=== PATIENT | male | born 1940 | race African-American/Black ===

== ENCOUNTER 2017-04-22 07:43 | Day surgery (SDC) | payer OTHER ==
[2017-04-21 14:27] VITALS: BMI 36.6
[~2017-04-22 07:43] MED LIST: BUPIVACAINE HCL/PF 0.75% 10 ML VIAL RB ONE; CHONDROITIN SU A/HYALUR SOD 1 KIT IO ONE; LIDOCAINE HCL 1% PRESERVATIVE FREE - 30ML VIAL IO ONE; LIDOCAINE HCL/PF 2% SDV 5ML VIAL PNB ONE; TETRACAINE 0.5% OPHTH SOLN 2 ML BOTTLE TP ONE; TOBRAMYCIN/DEXAMETHASONE OPHTH. OINTMENT 1 TUBE TP ONE
[2017-04-22] MEDS ORDERED: PHENYLEPHRINE 2.5% OPHTH SOLN 15 ML BOTTLE ONE (08:45)
[2017-04-22] MEDS ORDERED: MOXIFLOXACIN HCL 0.5% OPHTHALMIC 3 ML BOTTLE ONE (08:45)
[2017-04-22] MEDS ORDERED: TROPICAMIDE 1% OPHTH SOLN 15 ML BOTTLE ONE (08:45)
[2017-04-22] MEDS ORDERED: CYCLOPENTOLATE HCL 1% OPHTH SOLN 2 ML BOTTLE ONE (08:45)
[2017-04-22] MEDS: CYCLOPENTOLATE HCL 1% OPHTH SOLN 2 ML BOTTLE OP SCH ×3 (08:55→09:15)
[2017-04-22] MEDS: MOXIFLOXACIN HCL 0.5% OPHTHALMIC 3 ML BOTTLE OP SCH ×3 (08:55→09:15)
[2017-04-22] MEDS: PHENYLEPHRINE 2.5% OPHTH SOLN 15 ML BOTTLE OP SCH ×3 (08:55→09:15)
[2017-04-22] MEDS: TROPICAMIDE 1% OPHTH SOLN 15 ML BOTTLE OP SCH ×3 (08:55→09:15)
[2017-04-22] MEDS ORDERED: LIDOCAINE 1% P/F 10 MG/ML VIAL ONE (09:47)
[2017-04-22] MEDS ORDERED: LIDOCAINE HCL/PF 2% SDV 5ML VIAL ONE (09:47)
[2017-04-22] MEDS ORDERED: BUPIVACAINE HCL/PF 0.75% 10 ML VIAL ONE (09:47)
[2017-04-22] MEDS ORDERED: EPINEPHrine/PF 1 MG/1 ML (1:1,000) AMPULE ONE (09:47)
[2017-04-22] MEDS ORDERED: TRYPAN BLUE 0.5 ML DISP.SYRIN ONE (09:47)
[2017-04-22] MEDS ORDERED: TETRACAINE 0.5% OPHTH SOLN 2 ML BOTTLE TP ONE (10:00)
[2017-04-22] MEDS ORDERED: BUPIVACAINE HCL/PF 0.75% 10 ML VIAL RB ONE (10:02)
[2017-04-22] MEDS ORDERED: LIDOCAINE HCL/PF 2% SDV 5ML VIAL PNB ONE (10:02)
[2017-04-22] MEDS ORDERED: LIDOCAINE HCL 1% PRESERVATIVE FREE - 30ML VIAL IO ONE (10:03)
[2017-04-22] MEDS ORDERED: CHONDROITIN SU A/HYALUR SOD 1 KIT IO ONE (10:13)
[2017-04-22] MEDS ORDERED: TRYPAN BLUE 0.5 ML DISP.SYRIN IO ONE (10:13)
[2017-04-22] MEDS ORDERED: TOBRAMYCIN/DEXAMETHASONE OPHTH. OINTMENT 1 TUBE TP ONE (10:28)
[2017-04-22 14:49] VITALS: BP 142/77; PULSE 58; TEMP 97.2
--- NOTE | 2017-04-23 08:36 | OP ---
DATE OF OPERATION: 04/22/2017 SURGEON: Guillermo Rivas MD PREOPERATIVE DIAGNOSIS: Cataract, left eye. OPERATION: Phacoemulsification and intraocular lens implantation, left eye. POSTOPERATIVE DIAGNOSIS: Cataract, left eye. ANESTHESIA: Local with intravenous sedation. COMPLICATIONS: None. BLOOD LOSS: None. SPECIMEN: None. BRIEF HISTORY: The patient is a 77-year-old man with a past medical history of diabetes who presented with decreased vision in the left eye down to 20/50- due to a 1+ nuclear sclerotic lens with dense anterior spoking. Patient also has an ocular history significant for diabetic retinopathy, for which he has had intravitreal injections. After the risks, benefits, and alternatives to cataract surgery were discussed with the patient including the increased risk of posterior capsular tear due to the prior intravitreal injections, the patient consented to surgery. DESCRIPTION OF PROCEDURE: The patient was brought to the operating room and administered retrobulbar block after he was given intravenous sedation. He was then prepped and draped in the usual sterile fashion, and an eyelid speculum was inserted in the left eye, a paracentesis was made, and the anterior chamber was inflated with nonpreserved lidocaine. This was followed by injection of air, trypan blue dye , and Viscoat due to the poor visualization of the anterior capsule due to the anterior cortical spokes. A groove was made in the superotemporal clear cornea which was tunneled forward with a crescent blade. The anterior chamber was entered with a 2.75 keratome. The cystotome was used to make an incision at the center of the capsule, and a continuous curvilinear capsulorrhexis was created. The lens was hydrodissected until it was found to rotate freely within the capsular bag. Phacoemulsification was then used to remove the lens in its entirety. Irrigation and aspiration were used to remove residual cortical material. The anterior chamber and capsular bag were reinflated with Provisc, and a 20.0 diopter SN60WF AcrySof intraocular lens was injected into the capsular bag using the [place] injector. The lens was dialed into place using the [place] Labsey hook. Irrigation and aspiration were used to remove residual viscoelastic. The wound was stromally hydrated until it was found to be watertight and the eye was in an appropriate pressure. The eyelid speculum was removed from the eye, and TobraDex drops and a patch and shield were placed over the left eye. The patient was transferred to the recovery room in stable condition and will follow up tomorrow. Aydin [id number] MTDD
== END 2017-04-22 12:00 | disposition home or self-care (01) ==
LOC: JASU-SURG 07:43
PROVIDERS: ATTEND Ophthalmology
PROC: 08RK3JZ Replacement of Left Lens with Synthetic Substitute, Percutaneous Approach (ICD-10-PCS; principal; 2017-04-22 10:00)
DX: H25.12 Age-related nuclear cataract, left eye (principal); E13.319 Other specified diabetes mellitus with unspecified diabetic retinopathy without macular edema; H18.892 Other specified disorders of cornea, left eye

== ENCOUNTER 2017-09-09 08:24 | Day surgery (SDC) | payer OTHER ==
[2017-09-05 14:42] VITALS: BMI 31.0
[~2017-09-09 08:24] MED LIST changes: -BUPIVACAINE HCL/PF 0.75% 10 ML VIAL RB ONE; -CHONDROITIN SU A/HYALUR SOD 1 KIT IO ONE; -LIDOCAINE HCL 1% PRESERVATIVE FREE - 30ML VIAL IO ONE; -LIDOCAINE HCL/PF 2% SDV 5ML VIAL PNB ONE; -TETRACAINE 0.5% OPHTH SOLN 2 ML BOTTLE TP ONE
[2017-09-09] MEDS: CYCLOPENTOLATE HCL 1% OPHTH SOLN 2 ML BOTTLE OP SCH ×3 (09:00→09:35)
[2017-09-09] MEDS: PHENYLEPHRINE 2.5% OPHTH SOLN 15 ML BOTTLE OP SCH ×3 (09:00→09:36)
[2017-09-09] MEDS: MOXIFLOXACIN HCL 0.5% OPHTHALMIC 3 ML BOTTLE OP SCH ×3 (09:00→09:36)
[2017-09-09] MEDS: TROPICAMIDE 1% OPHTH SOLN 15 ML BOTTLE OP SCH ×3 (09:00→09:36)
[2017-09-09] MEDS ORDERED: TROPICAMIDE 1% OPHTH SOLN 15 ML BOTTLE ONE (09:06)
[2017-09-09] MEDS ORDERED: MOXIFLOXACIN HCL 0.5% OPHTHALMIC 3 ML BOTTLE ONE (09:06)
[2017-09-09] MEDS ORDERED: CYCLOPENTOLATE HCL 1% OPHTH SOLN 2 ML BOTTLE ONE (09:07)
[2017-09-09] MEDS ORDERED: PHENYLEPHRINE 2.5% OPHTH SOLN 15 ML BOTTLE ONE (09:07)
[2017-09-09 09:28] VITALS: TEMP 97.8
[2017-09-09] MEDS ORDERED: MIDAZOLAM HCL 2 MG/2 ML SINGLE DOSE VIAL ONE (11:30)
[2017-09-09] MEDS ORDERED: PROPOFOL 20 ML ONE (11:30)
[2017-09-09] MEDS ORDERED: LIDOCAINE HCL/PF 2% SDV 5ML VIAL ONE (11:30)
[2017-09-09] MEDS ORDERED: TETRACAINE 0.5% OPHTH SOLN 2 ML BOTTLE OD ONE (11:48)
[2017-09-09] MEDS ORDERED: BUPIVACAINE HCL/PF 0.75% 10 ML VIAL RB ONE (11:52)
[2017-09-09] MEDS ORDERED: LIDOCAINE HCL/PF 2% SDV 5ML VIAL INF ONE (11:52)
[2017-09-09] MEDS ORDERED: POVIDONE-IODINE 5% OPHTHALMIC PREP 30 ML SOLUTION OD ONE (11:53)
[2017-09-09] MEDS ORDERED: BSS (NA/CA/MG/K) BALANCED SALT SOLUTION OPHTH SOLN 15 ML BOTTLE OD ONE (12:03)
[2017-09-09] MEDS ORDERED: LIDOCAINE HCL 1% PRESERVATIVE FREE - 30ML VIAL IO ONE (12:03)
[2017-09-09] MEDS ORDERED: CHONDROITIN SU A/HYALUR SOD 1 KIT IO ONE (12:03)
[2017-09-09] MEDS ORDERED: EPINEPHrine/PF 1 MG/1 ML (1:1,000) AMPULE SQ ONE (12:06)
[2017-09-09] MEDS ORDERED: TOBRAMYCIN/DEXAMETHASONE OPHTH. OINTMENT 1 TUBE TP ONE (12:21)
[2017-09-09 13:54] VITALS: BP 117/66; PULSE 67
--- NOTE | 2017-09-09 14:07 | OP ---
DATE OF OPERATION: 09/09/2017 SURGEON: Guillermo Rivas MD PREOPERATIVE DIAGNOSIS: Cataract, right eye. OPERATION: Phacoemulsification and intraocular lens implantation, right eye. POSTOPERATIVE DIAGNOSIS: Cataract, right eye. ANESTHESIA: Local with intravenous sedation. COMPLICATIONS: None. BLOOD LOSS: None. SPECIMEN: None. BRIEF HISTORY: The patient is a 77-year-old man with a past medical history of diabetes, who presented with decreased vision in the right eye down to 20/50- due to a 1+ nuclear sclerotic lens with anterior cortical changes and peripheral cortical changes. After the risks, benefits, and alternatives to cataract surgery were discussed with the patient, he consented to surgery for the right eye. DESCRIPTION OF PROCEDURE: The patient was brought to the operating room and administered retrobulbar block after receiving intravenous sedation. He was then prepped and draped in the usual sterile fashion, and an eyelid speculum was inserted in the right eye. A paracentesis was made, and the anterior chamber was inflated with nonpreserved lidocaine. This was followed by injection of Viscoat. A groove was made in the temporal clear cornea which was tunneled forward with a crescent blade. The anterior chamber was entered with a 2.75 keratome. The cystotome was used to make an incision in the center of the capsule, and a continuous curvilinear capsulorrhexis was created. The lens was hydrodissected until it was found to rotate freely within the capsular bag. Phacoemulsification was then used to remove the lens in its entirety. Irrigation and aspiration were used to remove residual cortical material. The anterior chamber and capsular bag were reinflated with Provisc, and a 20.0-diopter SN60WF AcrySof intraocular lens was injected into the capsular bag using the [place] injector. The lens was dialed into place using a [place] hook. Irrigation and aspiration were used to remove residual Viscoelastic. The wound was stromally hydrated until it was found to be watertight and the eye was at an appropriate pressure. The eyelid speculum was removed from the eye, and TobraDex ointment and a patch and shield were placed over the right eye. The patient was transferred to the recovery room in stable condition and will follow up tomorrow. Aydin STRICKLAND/[id number]
== END 2017-09-09 13:45 | disposition home or self-care (01) ==
LOC: JASU-SURG 08:24
PROVIDERS: ATTEND Ophthalmology
PROC: 08RJ3JZ Replacement of Right Lens with Synthetic Substitute, Percutaneous Approach (ICD-10-PCS; principal; 2017-09-09 10:30)
DX: H25.11 Age-related nuclear cataract, right eye (principal)

== ENCOUNTER 2022-03-29 13:42 | Inpatient (IN) | payer OTHER ==
[2022-03-29 15:19] LABS: BASO % 0.9 % (0-2.0); EOS % 1.1 % (0-4.5); HEMATOCRIT 43.8 % (35.4-49); HEMOGLOBIN 15.3 GM/dL (11.7-16.9); LYMPH % 27.2 % (8-40); MCH 34.3 pg (25.7-33.7); MCHC 34.9 g/dl (32.0-35.9); MEAN CELL VOLUME 98.1 fl (80-96); MEAN PLT VOLUME 10.8 fl (7.5-11.1); MONO % 12.5 % (3.8-10.2); NEUT % 58.3 % (42.8-82.8); PLATELET COUNT 113 10^3/uL (134-434); RBC 4.47 M/mm3 (4.00-5.60); RDW 11.9 % (11.9-15.9); WHITE BLOOD COUNT 4.2 K/mm3 (4.0-10.0)
[2022-03-29 15:37] LABS: CALCIUM 9.7 mg/dL (8.5-10.1)
[2022-03-29 15:38] LABS: ALBUMIN 4.3 g/dl (3.4-5.0); BLOOD UREA NITROGEN 18.3 mg/dL (7-18)
[2022-03-29 15:41] LABS: CREATININE 1.1 mg/dL (0.55-1.3)
[2022-03-29 15:42] LABS: BILIRUBIN,TOTAL 0.8 mg/dL (0.2-1); TOT PROT 8.1 g/dl (6.4-8.2)
[2022-03-29 15:51] LABS: ACTIVATED PTT 32.9 SECONDS (25.2-36.5); INR 1.24 (0.83-1.09); PROTHROMBIN TIME (PATIENT) 14.3 SEC (9.7-13.0)
[2022-03-29 21:00] LABS: URINE APPEARANCE CLEAR; URINE BILIRUBIN NEGATIVE (NEGATIVE); URINE COLOR YELLOW; URINE GLUCOSE (UA) 1+ (NEGATIVE); URINE KETONE NEGATIVE (NEGATIVE); URINE LEUK ESTERASE NEGATIVE (NEGATIVE); URINE NITRITE NEGATIVE (NEGATIVE); URINE PROTEIN NEGATIVE (NEGATIVE); URINE UROBILINOGEN 0.2 mg/dL (0.2-1.0)
[2022-03-30] MEDS: levETIRAcetam 500 MG TABLET (FP) PO SCH ×3 (00:55→21:10)
[2022-03-30] MEDS: ROSUVASTATIN CA 20 MG TABLET PO SCH ×2 (00:55→21:10)
[2022-03-30] MEDS: INSULIN SLIDING SCALE (NOVOLOG) 1 VIAL SQ SCH ×5 (01:05→21:20)
[2022-03-30 07:09] LABS: HEMATOCRIT 40.6 % (35.4-49); HEMOGLOBIN 13.9 GM/dL (11.7-16.9); MCH 33.8 pg (25.7-33.7); MCHC 34.3 g/dl (32.0-35.9); MEAN CELL VOLUME 98.6 fl (80-96); MEAN PLT VOLUME 11.2 fl (7.5-11.1); PLATELET COUNT 103 10^3/uL (134-434); RBC 4.12 M/mm3 (4.00-5.60); RDW 11.4 % (11.9-15.9); WHITE BLOOD COUNT 5.3 K/mm3 (4.0-10.0)
[2022-03-30] MEDS: ASPIRIN 81 MG CHEWABLE TABLETS PO SCH (09:29)
[2022-03-30] MEDS: ENOXAPARIN NA (PORCINE) 40 MG/0.4 ML DISP.SYRIN SQ SCH (09:29)
[2022-03-30] MEDS: LOSARTAN 50MG/HCTZ 12.5MG 1 TAB PO SCH (09:29)
[2022-03-30 11:19] LABS: N-TERMINAL BNP 23.1 pg/ml (5-450)
[2022-03-31] MEDS: INSULIN SLIDING SCALE (NOVOLOG) 1 VIAL SQ SCH ×4 (06:18→21:33)
[2022-03-31 07:00] LABS: BASO % 0.7 % (0-2.0); EOS % 1.7 % (0-4.5); HEMATOCRIT 40.2 % (35.4-49); HEMOGLOBIN 13.9 GM/dL (11.7-16.9); LYMPH % 35.2 % (8-40); MCH 34.1 pg (25.7-33.7); MCHC 34.5 g/dl (32.0-35.9); MEAN CELL VOLUME 98.7 fl (80-96); MEAN PLT VOLUME 10.9 fl (7.5-11.1); MONO % 14.7 % (3.8-10.2); NEUT % 47.7 % (42.8-82.8); PLATELET COUNT 91 10^3/uL (134-434); RBC 4.07 M/mm3 (4.00-5.60); RDW 11.7 % (11.9-15.9); WHITE BLOOD COUNT 4.9 K/mm3 (4.0-10.0)
[2022-03-31 07:25] LABS: CALCIUM 8.9 mg/dL (8.5-10.1)
[2022-03-31] MEDS: LOSARTAN 50MG/HCTZ 12.5MG 1 TAB PO SCH (09:35)
[2022-03-31] MEDS: ENOXAPARIN NA (PORCINE) 40 MG/0.4 ML DISP.SYRIN SQ SCH (09:35)
[2022-03-31] MEDS: levETIRAcetam 500 MG TABLET (FP) PO SCH ×2 (09:35→21:26)
[2022-03-31] MEDS: ASPIRIN 81 MG CHEWABLE TABLETS PO SCH (09:35)
[2022-03-31] MEDS: guaiFENesin/CODEINE 5 ML UNIT-DOSE CUPS PO PRN (13:29)
[2022-03-31] MEDS ORDERED: SODIUM CHLORIDE 1,000 ML IV SCH (15:45)
[2022-03-31] MEDS ORDERED: DEXAMETHASONE SOD PHOSPHATE 10 MG/1 ML VIAL IVPUSH ONE (20:43)
[2022-03-31] MEDS: ROSUVASTATIN CA 20 MG TABLET PO SCH (21:26)
[2022-04-01] MEDS: INSULIN SLIDING SCALE (NOVOLOG) 1 VIAL SQ SCH ×4 (06:07→21:19)
[2022-04-01 07:42] LABS: BASO % 0.5 % (0-2.0); HEMATOCRIT 42.1 % (35.4-49); HEMOGLOBIN 14.5 GM/dL (11.7-16.9); LYMPH % 15.5 % (8-40); MCH 33.7 pg (25.7-33.7); MCHC 34.6 g/dl (32.0-35.9); MEAN CELL VOLUME 97.6 fl (80-96); MEAN PLT VOLUME 11.2 fl (7.5-11.1); MONO % 1.6 % (3.8-10.2); NEUT % 82.4 % (42.8-82.8); PLATELET COUNT 109 10^3/uL (134-434); RBC 4.31 M/mm3 (4.00-5.60); RDW 11.7 % (11.9-15.9); WHITE BLOOD COUNT 4.6 K/mm3 (4.0-10.0)
[2022-04-01 07:54] LABS: CALCIUM 8.7 mg/dL (8.5-10.1)
[2022-04-01 07:55] LABS: BLOOD UREA NITROGEN 19.9 mg/dL (7-18)
[2022-04-01 07:58] LABS: CREATININE 0.9 mg/dL (0.55-1.3)
[2022-04-01] MEDS: ENOXAPARIN NA (PORCINE) 40 MG/0.4 ML DISP.SYRIN SQ SCH (10:05)
[2022-04-01] MEDS: levETIRAcetam 500 MG TABLET (FP) PO SCH ×2 (10:05→21:12)
[2022-04-01] MEDS: LOSARTAN 50MG/HCTZ 12.5MG 1 TAB PO SCH (10:05)
[2022-04-01] MEDS: guaiFENesin/CODEINE 5 ML UNIT-DOSE CUPS PO PRN (21:12)
[2022-04-01] MEDS: ROSUVASTATIN CA 20 MG TABLET PO SCH (21:12)
[2022-04-02] MEDS: INSULIN SLIDING SCALE (NOVOLOG) 1 VIAL SQ SCH ×4 (06:44→21:51)
[2022-04-02] MEDS ORDERED: GENTAMICIN SO4 80 MG/2 ML VIAL ONE (07:21)
[2022-04-02] MEDS ORDERED: LIDOCAINE 1%/EPI 1:100000 (20 ML MULTI DOSE VIAL) ONE (07:21)
[2022-04-02] MEDS ORDERED: BUPIVACAINE HCL/PF 0.5% (5MG/ML) 10 ML VIAL ONE (07:21)
[2022-04-02] MEDS ORDERED: LIDOCAINE 1%/EPI 1:100000 (50 ML MULTI DOSE VIAL) NR ONE ×2 (07:57→12:30)
[2022-04-02] MEDS ORDERED: ceFAZolin SODIUM 1 GM VIAL IVPB ONE ×3 (07:58→12:25)
[2022-04-02] MEDS ORDERED: THROMBIN (BOVINE) 5,000 UNIT VIAL TP ONE ×2 (07:58→13:09)
[2022-04-02] MEDS ORDERED: VANCOMYCIN 1 GM in NS (PRE-DOCKED) 1,000 MG/250 ML IVPB ONE ×2 (07:58→12:52)
[2022-04-02] MEDS ORDERED: HYDROGEN PEROXIDE 473 ML PO ONE ×2 (07:59→13:09)
[2022-04-02] MEDS ORDERED: GENTAMICIN SO4 80 MG/2 ML VIAL IVPB ONE ×2 (07:59→13:06)
[2022-04-02] MEDS ORDERED: BUPIVACAINE HCL/PF 0.5% (5MG/ML) 10 ML VIAL IJ ONE (08:00)
[2022-04-02] MEDS ORDERED: THROMBIN (BOVINE) 20,000 UNIT VIAL TP ONE (08:10)
[2022-04-02] MEDS: levETIRAcetam 500 MG TABLET (FP) PO SCH ×2 (09:38→21:51)
[2022-04-02] MEDS: LOSARTAN 50MG/HCTZ 12.5MG 1 TAB PO SCH (09:39)
[2022-04-02] MEDS: ENOXAPARIN NA (PORCINE) 40 MG/0.4 ML DISP.SYRIN SQ SCH (09:39)
[2022-04-02] MEDS ORDERED: ETOMIDATE 20 MG/10 ML AMPUL IVPUSH ONE (11:10)
[2022-04-02] MEDS ORDERED: LIDOCAINE HCL/PF 2% SDV 5ML VIAL ONE (11:10)
[2022-04-02] MEDS ORDERED: ROCURONIUM BROMIDE 50 MG/5 ML SYRINGE ONE ×2 (11:11→13:19)
[2022-04-02] MEDS ORDERED: ALBUTEROL SO4 HFA INHALER IH ONE (11:11)
[2022-04-02] MEDS ORDERED: PROPOFOL 20 ML ONE (11:11)
[2022-04-02] MEDS ORDERED: ONDANSETRON 4 MG/2 ML VIAL ONE (12:09)
[2022-04-02] MEDS ORDERED: DEXAMETHASONE SOD PHOSPHATE 4 MG/1 ML VIAL ONE (12:09)
[2022-04-02] MEDS ORDERED: ceFAZolin SODIUM 1 GM VIAL ONE ×2 (12:22→21:44)
[2022-04-02] MEDS ORDERED: VANCOMYCIN 1,000 MG VIAL (RESTRICTED TO ID ONLY) ONE (12:51)
[2022-04-02] MEDS ORDERED: TRANEXAMIC ACID 1000 MG/10 ML VIAL ONE (12:51)
[2022-04-02] MEDS ORDERED: GLYCOPYRROLATE 0.2 MG/1 ML VIAL ONE (13:27)
[2022-04-02] MEDS ORDERED: NEOSTIGMINE METHYLSULFATE 0.5 MG/1 ML - 10 ML MDV ONE (13:27)
[2022-04-02] MEDS ORDERED: ONDANSETRON 4 MG/2 ML VIAL IVPUSH PRN ×3 (14:25→15:01)
[2022-04-02] MEDS ORDERED: ACETAMINOPHEN 1000 MG/100 ML BAG IVPB PRN ×2 (14:26→15:01)
[2022-04-02] MEDS ORDERED: CODEINE SO4 30 MG TABLET PO PRN (14:44)
[2022-04-02] MEDS ORDERED: ACETAMINOPHEN INJECTION 100 ML IVPB ONE (14:49)
[2022-04-02] MEDS ORDERED: guaiFENesin/CODEINE 5 ML UNIT-DOSE CUPS PO PRN (15:01)
[2022-04-02] MEDS: SODIUM CHLORIDE 1,000 ML IV SCH (16:00)
[2022-04-02] MEDS ORDERED: DEXTROSE 5%-WATER - 50 ML IVPB ONE (21:44)
[2022-04-02] MEDS: CEFAZOLIN 1 GM in DEXTROSE 5%-WATER - 50 ML IVPB SCH (21:51)
[2022-04-02] MEDS: DOCUSATE SODIUM 100 MG CAPSULE (FP) PO SCH (21:51)
[2022-04-02] MEDS: ROSUVASTATIN CA 20 MG TABLET PO SCH (21:51)
[2022-04-03] MEDS ORDERED: ceFAZolin SODIUM 1 GM VIAL ONE (01:49)
[2022-04-03] MEDS ORDERED: DEXTROSE 5%-WATER - 50 ML IVPB ONE (01:49)
[2022-04-03] MEDS: CEFAZOLIN 1 GM in DEXTROSE 5%-WATER - 50 ML IVPB SCH (04:26)
[2022-04-03] MEDS: INSULIN SLIDING SCALE (NOVOLOG) 1 VIAL SQ SCH ×4 (06:41→21:32)
[2022-04-03] MEDS: DOCUSATE SODIUM 100 MG CAPSULE (FP) PO SCH ×3 (06:41→21:32)
[2022-04-03] MEDS ORDERED: ASPIRIN 81 MG CHEWABLE TABLETS PO SCH (10:00)
[2022-04-03] MEDS: ENOXAPARIN NA (PORCINE) 40 MG/0.4 ML DISP.SYRIN SQ SCH (11:09)
[2022-04-03] MEDS: LOSARTAN 50MG/HCTZ 12.5MG 1 TAB PO SCH (11:09)
[2022-04-03] MEDS: levETIRAcetam 500 MG TABLET (FP) PO SCH ×2 (11:09→21:32)
[2022-04-03 14:45] LABS: HEMATOCRIT 38.6 % (35.4-49); HEMOGLOBIN 13.1 GM/dL (11.7-16.9); MCH 33.9 pg (25.7-33.7); MCHC 33.9 g/dl (32.0-35.9); MEAN CELL VOLUME 100.1 fl (80-96); MEAN PLT VOLUME 10.1 fl (7.5-11.1); PLATELET COUNT 92 10^3/uL (134-434); RBC 3.86 M/mm3 (4.00-5.60); RDW 11.6 % (11.9-15.9); WHITE BLOOD COUNT 6.8 K/mm3 (4.0-10.0)
[2022-04-03 15:20] LABS: CALCIUM 8.7 mg/dL (8.5-10.1)
[2022-04-03 15:21] LABS: BLOOD UREA NITROGEN 21.2 mg/dL (7-18)
[2022-04-03 15:24] LABS: CREATININE 1.2 mg/dL (0.55-1.3)
[2022-04-03] MEDS: ROSUVASTATIN CA 20 MG TABLET PO SCH (21:32)
[2022-04-04] MEDS: DOCUSATE SODIUM 100 MG CAPSULE (FP) PO SCH ×3 (06:35→21:23)
[2022-04-04] MEDS: INSULIN SLIDING SCALE (NOVOLOG) 1 VIAL SQ SCH ×4 (06:36→21:23)
[2022-04-04] MEDS: SODIUM CHLORIDE 1,000 ML IV SCH ×2 (06:40→17:18)
[2022-04-04] MEDS: LOSARTAN 50MG/HCTZ 12.5MG 1 TAB PO SCH (09:53)
[2022-04-04] MEDS: ENOXAPARIN NA (PORCINE) 40 MG/0.4 ML DISP.SYRIN SQ SCH (09:53)
[2022-04-04] MEDS: levETIRAcetam 500 MG TABLET (FP) PO SCH ×2 (09:53→21:23)
[2022-04-04] MEDS ORDERED: LORazepam 2 MG/ML SDV VIAL IVPUSH PRN (11:53)
[2022-04-04] MEDS: ROSUVASTATIN CA 20 MG TABLET PO SCH (21:23)
[2022-04-04 23:59] VITALS: BMI 35.0
[2022-04-05] MEDS: INSULIN SLIDING SCALE (NOVOLOG) 1 VIAL SQ SCH ×4 (06:07→22:10)
[2022-04-05] MEDS: DOCUSATE SODIUM 100 MG CAPSULE (FP) PO SCH ×3 (06:07→22:02)
[2022-04-05] MEDS: ENOXAPARIN NA (PORCINE) 40 MG/0.4 ML DISP.SYRIN SQ SCH (10:16)
[2022-04-05] MEDS: levETIRAcetam 500 MG TABLET (FP) PO SCH ×2 (10:17→22:02)
[2022-04-05] MEDS: LOSARTAN 50MG/HCTZ 12.5MG 1 TAB PO SCH (10:17)
[2022-04-05 13:37] LABS: BASO % 0.6 % (0-2.0); HEMATOCRIT 38.7 % (35.4-49); HEMOGLOBIN 13.4 GM/dL (11.7-16.9); LYMPH % 24.5 % (8-40); MCH 33.9 pg (25.7-33.7); MCHC 34.6 g/dl (32.0-35.9); MEAN CELL VOLUME 97.9 fl (80-96); MEAN PLT VOLUME 11.1 fl (7.5-11.1); NEUT % 61.9 % (42.8-82.8); PLATELET COUNT 86 10^3/uL (134-434); RBC 3.95 M/mm3 (4.00-5.60); RDW 11.6 % (11.9-15.9); WHITE BLOOD COUNT 6.3 K/mm3 (4.0-10.0)
[2022-04-05 14:06] LABS: CALCIUM 8.5 mg/dL (8.5-10.1)
[2022-04-05 14:07] LABS: BLOOD UREA NITROGEN 14.7 mg/dL (7-18)
[2022-04-05 14:10] LABS: CREATININE 0.8 mg/dL (0.55-1.3)
[2022-04-05] MEDS: SODIUM CHLORIDE 1,000 ML IV SCH (15:42)
[2022-04-05] MEDS ORDERED: ACETAMINOPHEN 500 MG TABLET (FP) PO PRN (16:06)
[2022-04-05] MEDS: ROSUVASTATIN CA 20 MG TABLET PO SCH (22:02)
[2022-04-06] MEDS: DOCUSATE SODIUM 100 MG CAPSULE (FP) PO SCH ×3 (05:49→21:45)
[2022-04-06] MEDS: INSULIN SLIDING SCALE (NOVOLOG) 1 VIAL SQ SCH ×4 (06:06→21:56)
[2022-04-06] MEDS: LOSARTAN 50MG/HCTZ 12.5MG 1 TAB PO SCH (09:25)
[2022-04-06] MEDS: levETIRAcetam 500 MG TABLET (FP) PO SCH ×2 (09:25→21:45)
[2022-04-06] MEDS: ENOXAPARIN NA (PORCINE) 40 MG/0.4 ML DISP.SYRIN SQ SCH (09:34)
[2022-04-06] MEDS: SODIUM CHLORIDE 1,000 ML IV SCH (21:43)
[2022-04-06] MEDS: ROSUVASTATIN CA 20 MG TABLET PO SCH (21:45)
[2022-04-07] MEDS: DOCUSATE SODIUM 100 MG CAPSULE (FP) PO SCH ×3 (06:33→21:45)
[2022-04-07] MEDS: INSULIN SLIDING SCALE (NOVOLOG) 1 VIAL SQ SCH ×3 (06:33→16:55)
[2022-04-07] MEDS: levETIRAcetam 500 MG TABLET (FP) PO SCH ×2 (09:46→21:45)
[2022-04-07] MEDS: LOSARTAN 50MG/HCTZ 12.5MG 1 TAB PO SCH (09:46)
[2022-04-07] MEDS: ENOXAPARIN NA (PORCINE) 40 MG/0.4 ML DISP.SYRIN SQ SCH (09:49)
[2022-04-07] MEDS ORDERED: SODIUM CHLORIDE 1,000 ML IV SCH (10:34)
[2022-04-07 11:47] LABS: BASO % 0.6 % (0-2.0); EOS % 2.4 % (0-4.5); HEMATOCRIT 36.6 % (35.4-49); HEMOGLOBIN 12.9 GM/dL (11.7-16.9); LYMPH % 26.2 % (8-40); MCH 34.6 pg (25.7-33.7); MCHC 35.2 g/dl (32.0-35.9); MEAN CELL VOLUME 98.3 fl (80-96); MEAN PLT VOLUME 11.4 fl (7.5-11.1); MONO % 14.7 % (3.8-10.2); NEUT % 56.1 % (42.8-82.8); PLATELET COUNT 81 10^3/uL (134-434); RBC 3.72 M/mm3 (4.00-5.60); RDW 11.8 % (11.9-15.9); WHITE BLOOD COUNT 4.6 K/mm3 (4.0-10.0)
[2022-04-07 12:01] LABS: BLOOD UREA NITROGEN 12.4 mg/dL (7-18); CALCIUM 8.2 mg/dL (8.5-10.1)
[2022-04-07 12:04] LABS: CREATININE 0.6 mg/dL (0.55-1.3)
[2022-04-07] MEDS ORDERED: POLYETHYLENE GLYCOL (HEALTHYLAX) 3350 17 GM PACKET PO ONE (18:45)
[2022-04-07] MEDS: ROSUVASTATIN CA 20 MG TABLET PO SCH (21:45)
[2022-04-08] MEDS: INSULIN SLIDING SCALE (NOVOLOG) 1 VIAL SQ SCH ×5 (00:28→21:47)
[2022-04-08] MEDS ORDERED: LORazepam 2 MG/ML SDV VIAL IVPUSH ONE (00:50)
[2022-04-08] MEDS: DOCUSATE SODIUM 100 MG CAPSULE (FP) PO SCH ×3 (06:05→21:47)
[2022-04-08] MEDS: levETIRAcetam 500 MG TABLET (FP) PO SCH ×2 (10:03→21:47)
[2022-04-08] MEDS: LOSARTAN 50MG/HCTZ 12.5MG 1 TAB PO SCH (10:03)
[2022-04-08] MEDS: ENOXAPARIN NA (PORCINE) 40 MG/0.4 ML DISP.SYRIN SQ SCH (10:53)
[2022-04-08 12:12] LABS: BASO % 0.8 % (0-2.0); EOS % 2.4 % (0-4.5); HEMATOCRIT 39.6 % (35.4-49); HEMOGLOBIN 13.6 GM/dL (11.7-16.9); LYMPH % 25.1 % (8-40); MCHC 34.2 g/dl (32.0-35.9); MEAN CELL VOLUME 99.3 fl (80-96); MEAN PLT VOLUME 11.9 fl (7.5-11.1); MONO % 13.2 % (3.8-10.2); NEUT % 58.5 % (42.8-82.8); PLATELET COUNT 92 10^3/uL (134-434); RBC 3.99 M/mm3 (4.00-5.60); WHITE BLOOD COUNT 4.7 K/mm3 (4.0-10.0)
[2022-04-08 12:30] LABS: ALBUMIN 3.7 g/dl (3.4-5.0); CALCIUM 9.1 mg/dL (8.5-10.1)
[2022-04-08 12:31] LABS: BLOOD UREA NITROGEN 10.4 mg/dL (7-18)
[2022-04-08 12:33] LABS: CREATININE 0.9 mg/dL (0.55-1.3)
[2022-04-08 12:35] LABS: BILIRUBIN,TOTAL 1.3 mg/dL (0.2-1); TOT PROT 6.5 g/dl (6.4-8.2)
[2022-04-08] MEDS: ROSUVASTATIN CA 20 MG TABLET PO SCH (21:47)
[2022-04-09] MEDS: DOCUSATE SODIUM 100 MG CAPSULE (FP) PO SCH ×3 (05:46→21:05)
[2022-04-09] MEDS: INSULIN SLIDING SCALE (NOVOLOG) 1 VIAL SQ SCH ×4 (06:03→21:04)
[2022-04-09] MEDS: ENOXAPARIN NA (PORCINE) 40 MG/0.4 ML DISP.SYRIN SQ SCH (09:11)
[2022-04-09] MEDS: levETIRAcetam 500 MG TABLET (FP) PO SCH ×2 (09:11→21:05)
[2022-04-09] MEDS: TAMSULOSIN HCL 0.4 MG CAP PO SCH (09:11)
[2022-04-09] MEDS: LOSARTAN 50MG/HCTZ 12.5MG 1 TAB PO SCH (09:11)
[2022-04-09] MEDS: QUEtiapine FUMARATE 25 MG TABLET PO SCH ×2 (10:05→21:05)
[2022-04-09 13:39] LABS: BASO % 1.3 % (0-2.0); EOS % 1.5 % (0-4.5); HEMATOCRIT 39.6 % (35.4-49); HEMOGLOBIN 13.8 GM/dL (11.7-16.9); LYMPH % 23.5 % (8-40); MCH 34.5 pg (25.7-33.7); MCHC 34.7 g/dl (32.0-35.9); MEAN CELL VOLUME 99.3 fl (80-96); MEAN PLT VOLUME 11.1 fl (7.5-11.1); MONO % 12.3 % (3.8-10.2); NEUT % 61.4 % (42.8-82.8); PLATELET COUNT 90 10^3/uL (134-434); RBC 3.99 M/mm3 (4.00-5.60); RDW 11.7 % (11.9-15.9); WHITE BLOOD COUNT 5.1 K/mm3 (4.0-10.0)
[2022-04-09 14:16] LABS: CALCIUM 9.2 mg/dL (8.5-10.1)
[2022-04-09 14:17] LABS: CREATININE 0.9 mg/dL (0.55-1.3)
[2022-04-09] MEDS: ROSUVASTATIN CA 20 MG TABLET PO SCH (21:06)
[2022-04-09] MEDS: LORazepam 2 MG/ML SDV VIAL IVPUSH PRN (21:11)
[2022-04-10 00:46] LABS: URINE APPEARANCE CLEAR; URINE BILIRUBIN NEGATIVE (NEGATIVE); URINE COLOR YELLOW; URINE GLUCOSE (UA) NEGATIVE (NEGATIVE); URINE KETONE NEGATIVE (NEGATIVE); URINE LEUK ESTERASE NEGATIVE (NEGATIVE); URINE NITRITE NEGATIVE (NEGATIVE); URINE PROTEIN NEGATIVE (NEGATIVE)
[2022-04-10] MEDS: DOCUSATE SODIUM 100 MG CAPSULE (FP) PO SCH ×3 (06:05→21:36)
[2022-04-10] MEDS: INSULIN SLIDING SCALE (NOVOLOG) 1 VIAL SQ SCH ×4 (06:05→21:45)
[2022-04-10] MEDS: QUEtiapine FUMARATE 25 MG TABLET PO SCH ×2 (09:57→21:36)
[2022-04-10] MEDS: LOSARTAN 50MG/HCTZ 12.5MG 1 TAB PO SCH (09:59)
[2022-04-10] MEDS: TAMSULOSIN HCL 0.4 MG CAP PO SCH (09:59)
[2022-04-10] MEDS: levETIRAcetam 500 MG TABLET (FP) PO SCH ×2 (09:59→21:36)
[2022-04-10] MEDS: FINASTERIDE 5 MG TABLET (FP) PO SCH (11:49)
[2022-04-10] MEDS: ROSUVASTATIN CA 20 MG TABLET PO SCH (21:36)
[2022-04-10] MEDS: LORazepam 2 MG/ML SDV VIAL IVPUSH PRN (23:00)
[2022-04-11] MEDS: DOCUSATE SODIUM 100 MG CAPSULE (FP) PO SCH ×3 (06:12→21:38)
[2022-04-11] MEDS: INSULIN SLIDING SCALE (NOVOLOG) 1 VIAL SQ SCH ×4 (06:12→21:47)
[2022-04-11 07:35] LABS: BASO % 0.9 % (0-2.0); EOS % 1.6 % (0-4.5); HEMOGLOBIN 13.6 GM/dL (11.7-16.9); LYMPH % 25.8 % (8-40); MCH 34.7 pg (25.7-33.7); MCHC 34.9 g/dl (32.0-35.9); MEAN CELL VOLUME 99.5 fl (80-96); MEAN PLT VOLUME 11.1 fl (7.5-11.1); MONO % 11.6 % (3.8-10.2); NEUT % 60.1 % (42.8-82.8); PLATELET COUNT 91 10^3/uL (134-434); RBC 3.92 M/mm3 (4.00-5.60); RDW 12.1 % (11.9-15.9)
[2022-04-11 08:00] LABS: CALCIUM 9.1 mg/dL (8.5-10.1)
[2022-04-11 08:01] LABS: BLOOD UREA NITROGEN 14.2 mg/dL (7-18)
[2022-04-11 08:04] LABS: CREATININE 0.8 mg/dL (0.55-1.3)
[2022-04-11] MEDS: levETIRAcetam 500 MG TABLET (FP) PO SCH ×2 (09:23→21:38)
[2022-04-11] MEDS: LOSARTAN 50MG/HCTZ 12.5MG 1 TAB PO SCH (09:23)
[2022-04-11] MEDS: FINASTERIDE 5 MG TABLET (FP) PO SCH (09:23)
[2022-04-11] MEDS: QUEtiapine FUMARATE 25 MG TABLET PO SCH ×2 (09:24→21:39)
[2022-04-11] MEDS: TAMSULOSIN HCL 0.4 MG CAP PO SCH (09:24)
[2022-04-11] MEDS ORDERED: ACETAMINOPHEN 500 MG TABLET (FP) PO PRN (16:44)
[2022-04-11] MEDS ORDERED: LORazepam 2 MG/ML SDV VIAL IVPUSH PRN (16:44)
[2022-04-11] MEDS: ROSUVASTATIN CA 20 MG TABLET PO SCH (21:37)
[2022-04-12] MEDS: INSULIN SLIDING SCALE (NOVOLOG) 1 VIAL SQ SCH ×4 (06:38→21:37)
[2022-04-12] MEDS: DOCUSATE SODIUM 100 MG CAPSULE (FP) PO SCH ×3 (06:38→21:36)
[2022-04-12] MEDS: TAMSULOSIN HCL 0.4 MG CAP PO SCH (08:33)
[2022-04-12] MEDS: FINASTERIDE 5 MG TABLET (FP) PO SCH (11:22)
[2022-04-12] MEDS: LOSARTAN 50MG/HCTZ 12.5MG 1 TAB PO SCH (11:23)
[2022-04-12] MEDS: levETIRAcetam 500 MG TABLET (FP) PO SCH ×2 (11:23→21:36)
[2022-04-12] MEDS: QUEtiapine FUMARATE 25 MG TABLET PO SCH ×2 (11:24→21:36)
[2022-04-12] MEDS: ROSUVASTATIN CA 20 MG TABLET PO SCH (21:37)
[2022-04-13] MEDS: DOCUSATE SODIUM 100 MG CAPSULE (FP) PO SCH ×3 (06:31→21:04)
[2022-04-13] MEDS: INSULIN SLIDING SCALE (NOVOLOG) 1 VIAL SQ SCH ×4 (06:33→21:04)
[2022-04-13 09:00] LABS: BASO % 0.7 % (0-2.0); EOS % 1.4 % (0-4.5); HEMOGLOBIN 14.1 GM/dL (11.7-16.9); LYMPH % 30.5 % (8-40); MCH 34.3 pg (25.7-33.7); MCHC 34.5 g/dl (32.0-35.9); MEAN CELL VOLUME 99.7 fl (80-96); MEAN PLT VOLUME 11.4 fl (7.5-11.1); MONO % 11.4 % (3.8-10.2); PLATELET COUNT 100 10^3/uL (134-434); RBC 4.11 M/mm3 (4.00-5.60); WHITE BLOOD COUNT 5.6 K/mm3 (4.0-10.0)
[2022-04-13] MEDS: QUEtiapine FUMARATE 25 MG TABLET PO SCH ×2 (09:06→21:04)
[2022-04-13] MEDS: levETIRAcetam 500 MG TABLET (FP) PO SCH ×2 (09:07→21:04)
[2022-04-13] MEDS: TAMSULOSIN HCL 0.4 MG CAP PO SCH (09:07)
[2022-04-13] MEDS: FINASTERIDE 5 MG TABLET (FP) PO SCH (09:07)
[2022-04-13] MEDS: LOSARTAN 50MG/HCTZ 12.5MG 1 TAB PO SCH (09:15)
[2022-04-13 09:25] LABS: BLOOD UREA NITROGEN 18.2 mg/dL (7-18); CALCIUM 9.2 mg/dL (8.5-10.1)
[2022-04-13 09:29] LABS: CREATININE 0.9 mg/dL (0.55-1.3)
[2022-04-13] MEDS ORDERED: POTASSIUM CHLORIDE ORAL LIQUID 20 MEQ/15 ML PO ONE (09:53)
[2022-04-13] MEDS: ROSUVASTATIN CA 20 MG TABLET PO SCH (21:04)
[2022-04-14] MEDS: DOCUSATE SODIUM 100 MG CAPSULE (FP) PO SCH ×3 (06:15→21:05)
[2022-04-14] MEDS: INSULIN SLIDING SCALE (NOVOLOG) 1 VIAL SQ SCH ×4 (06:20→21:05)
[2022-04-14] MEDS: QUEtiapine FUMARATE 25 MG TABLET PO SCH ×2 (09:24→21:05)
[2022-04-14] MEDS: FINASTERIDE 5 MG TABLET (FP) PO SCH (09:25)
[2022-04-14] MEDS: TAMSULOSIN HCL 0.4 MG CAP PO SCH (09:25)
[2022-04-14] MEDS: levETIRAcetam 500 MG TABLET (FP) PO SCH ×2 (09:25→21:05)
[2022-04-14] MEDS: LOSARTAN 50MG/HCTZ 12.5MG 1 TAB PO SCH (09:47)
[2022-04-14 10:39] LABS: BASO % 0.4 % (0-2.0); EOS % 1.1 % (0-4.5); HEMATOCRIT 41.5 % (35.4-49); HEMOGLOBIN 14.3 GM/dL (11.7-16.9); LYMPH % 27.2 % (8-40); MCH 34.5 pg (25.7-33.7); MCHC 34.6 g/dl (32.0-35.9); MEAN CELL VOLUME 99.7 fl (80-96); MEAN PLT VOLUME 11.5 fl (7.5-11.1); MONO % 10.2 % (3.8-10.2); NEUT % 61.1 % (42.8-82.8); PLATELET COUNT 102 10^3/uL (134-434); RBC 4.16 M/mm3 (4.00-5.60); RDW 12.2 % (11.9-15.9); WHITE BLOOD COUNT 5.7 K/mm3 (4.0-10.0)
[2022-04-14 10:40] LABS: CALCIUM 9.2 mg/dL (8.5-10.1)
[2022-04-14 10:42] LABS: BLOOD UREA NITROGEN 19.3 mg/dL (7-18)
[2022-04-14] MEDS ORDERED: LORazepam 2 MG/ML SDV VIAL IM PRN (11:01)
[2022-04-14] MEDS ORDERED: POTASSIUM CHLORIDE TABS 20 MEQ TABLET.ER (FP) PO ONE (11:06)
[2022-04-14] MEDS ORDERED: INSULIN (NOVOLOG) ASPART 100 UNITS/ML 10ML VIAL ONE (20:50)
[2022-04-14] MEDS: ROSUVASTATIN CA 20 MG TABLET PO SCH (21:04)
[2022-04-15] MEDS: DOCUSATE SODIUM 100 MG CAPSULE (FP) PO SCH ×3 (06:17→21:35)
[2022-04-15] MEDS: INSULIN SLIDING SCALE (NOVOLOG) 1 VIAL SQ SCH ×4 (06:19→21:38)
[2022-04-15] MEDS: FINASTERIDE 5 MG TABLET (FP) PO SCH (09:19)
[2022-04-15] MEDS: levETIRAcetam 500 MG TABLET (FP) PO SCH ×2 (09:19→21:35)
[2022-04-15] MEDS: QUEtiapine FUMARATE 25 MG TABLET PO SCH ×2 (09:19→21:35)
[2022-04-15] MEDS: LOSARTAN 50MG/HCTZ 12.5MG 1 TAB PO SCH (09:19)
[2022-04-15] MEDS: TAMSULOSIN HCL 0.4 MG CAP PO SCH (09:19)
[2022-04-15] MEDS ORDERED: INSULIN (NOVOLOG) ASPART 100 UNITS/ML 10ML VIAL ONE (11:26)
[2022-04-15 12:15] LABS: BASO % 0.7 % (0-2.0); EOS % 1.3 % (0-4.5); HEMATOCRIT 42.5 % (35.4-49); HEMOGLOBIN 14.6 GM/dL (11.7-16.9); LYMPH % 29.7 % (8-40); MCH 34.5 pg (25.7-33.7); MCHC 34.4 g/dl (32.0-35.9); MEAN CELL VOLUME 100.1 fl (80-96); MEAN PLT VOLUME 11.1 fl (7.5-11.1); MONO % 13.4 % (3.8-10.2); NEUT % 54.9 % (42.8-82.8); PLATELET COUNT 96 10^3/uL (134-434); RBC 4.25 M/mm3 (4.00-5.60); RDW 12.4 % (11.9-15.9)
[2022-04-15 13:05] LABS: ALBUMIN 3.6 g/dl (3.4-5.0); BLOOD UREA NITROGEN 17.9 mg/dL (7-18); CALCIUM 8.9 mg/dL (8.5-10.1); CREATININE 0.8 mg/dL (0.55-1.3); TOT PROT 6.8 g/dl (6.4-8.2)
[2022-04-15] MEDS: ASPIRIN 81 MG CHEWABLE TABLETS PO SCH ×2 (16:20→16:25)
[2022-04-15] MEDS: ROSUVASTATIN CA 20 MG TABLET PO SCH (21:35)
[2022-04-16 05:16] VITALS: TEMP 98
[2022-04-16] MEDS: INSULIN SLIDING SCALE (NOVOLOG) 1 VIAL SQ SCH ×2 (06:48→11:33)
[2022-04-16] MEDS: DOCUSATE SODIUM 100 MG CAPSULE (FP) PO SCH (06:48)
[2022-04-16 10:22] VITALS: BP 106/67; PULSE 69
[2022-04-16] MEDS: ASPIRIN 81 MG CHEWABLE TABLETS PO SCH (10:56)
[2022-04-16] MEDS: levETIRAcetam 500 MG TABLET (FP) PO SCH (10:56)
[2022-04-16] MEDS: FINASTERIDE 5 MG TABLET (FP) PO SCH (10:56)
[2022-04-16] MEDS: TAMSULOSIN HCL 0.4 MG CAP PO SCH (10:57)
[2022-04-16] MEDS: LOSARTAN 50MG/HCTZ 12.5MG 1 TAB PO SCH (10:57)
[2022-04-16] MEDS: QUEtiapine FUMARATE 25 MG TABLET PO SCH (11:04)
== END 2022-04-16 11:48 | disposition home or self-care (01) | DRG 31 ==
LOC: JER 13:42 → JERBED 17:02 → J4W 22:01 → J6S 04-11 16:52
PROVIDERS: ADMIT Internal Medicine; ATTEND Internal Medicine
PROC: 00164J6 Bypass Cerebral Ventricle to Peritoneal Cavity with Synthetic Substitute, Percutaneous Endoscopic Approach (ICD-10-PCS; principal; 2022-04-02 11:00)
DX: G91.1 Obstructive hydrocephalus (principal); I63.9 Cerebral infarction, unspecified; G45.9 Transient cerebral ischemic attack, unspecified; C71.9 Malignant neoplasm of brain, unspecified; R47.01 Aphasia; G81.91 Hemiplegia, unspecified affecting right dominant side; F03.90 Unspecified dementia, unspecified severity, without behavioral disturbance, psychotic disturbance, mood disturbance, and anxiety; E03.9 Hypothyroidism, unspecified; I10 Essential (primary) hypertension; E11.9 Type 2 diabetes mellitus without complications; E78.5 Hyperlipidemia, unspecified; R47.81 Slurred speech; E11.51 Type 2 diabetes mellitus with diabetic peripheral angiopathy without gangrene; E87.6 Hypokalemia; E66.9 Obesity, unspecified; Z68.35 Body mass index [BMI] 35.0-35.9, adult; E86.0 Dehydration; R31.0 Gross hematuria
CPT/HCPCS: 36415; 70450-TC; 70551-TC; 71045-TC-FY; 74230-TC-FY; 80048; 80053; 80061; 81003; 82962; 83036; 83880; 84443; 84484; 85025; 85027; 85610; 85730; 86850; 86900; 86901; 92611-GN; 93005; 93010; 93306-TC; 93880-TC; 93926-TC; 94010; 94760; 97116-GP; 97162-GP; 99285-25; C9803-CS; J1100; U0003; U0005

== ENCOUNTER 2022-05-03 16:10 | Emergency (ER) | payer OTHER ==
[2022-05-03 16:45] VITALS: BMI 36.8
[2022-05-03] MEDS ORDERED: SODIUM CHLORIDE 0.9% 500 ML INFUS.BAG IV ONE (17:18)
[2022-05-03 17:47] VITALS: PULSE 54
[2022-05-03 18:07] VITALS: BP 108/68
== END 2022-05-03 18:44 | disposition home or self-care (01) ==
LOC: JER 16:10
DX: R03.1 Nonspecific low blood-pressure reading (principal)
CPT/HCPCS: 93005; 93010; 99284-25

== ENCOUNTER 2022-07-11 09:20 | Observation (INO) | payer OTHER ==
[2022-07-11] MEDS ORDERED: SODIUM CHLORIDE 0.9% 500 ML INFUS.BAG IV ONE (10:09)
[2022-07-11 12:16] LABS: BASO % 0.7 % (0-2.0); EOS % 0.8 % (0-4.5); HEMATOCRIT 38.9 % (35.4-49); HEMOGLOBIN 13.7 GM/dL (11.7-16.9); LYMPH % 20.9 % (8-40); MCH 34.3 pg (25.7-33.7); MCHC 35.1 g/dl (32.0-35.9); MEAN CELL VOLUME 97.5 fl (80-96); MEAN PLT VOLUME 10.7 fl (7.5-11.1); MONO % 15.9 % (3.8-10.2); NEUT % 61.7 % (42.8-82.8); PLATELET COUNT 94 10^3/uL (134-434); RBC 3.99 M/mm3 (4.00-5.60); RDW 11.8 % (11.9-15.9); WHITE BLOOD COUNT 7.6 K/mm3 (4.0-10.0)
[2022-07-11 12:35] LABS: CHLORIDE 105 mmol/L (98-107); SODIUM 143 mmol/L (136-145)
[2022-07-11 12:38] LABS: ALBUMIN 3.9 g/dl (3.4-5.0); ANION GAP 8 MMOL/L (8-16); BLOOD UREA NITROGEN 22.4 mg/dL (7-18); CALCIUM 9.4 mg/dL (8.5-10.1); CO2 31 mmol/L (21-32)
[2022-07-11 12:41] LABS: CREATININE 1.5 mg/dL (0.55-1.3); GLUCOSE,RANDOM 49 mg/dL (74-106); SGOT/AST 35 U/L (15-37); SGPT/ALT 36 U/L (13-61)
[2022-07-11 12:42] LABS: BILIRUBIN,TOTAL 0.9 mg/dL (0.2-1); TOT PROT 7.4 g/dl (6.4-8.2)
[2022-07-11 12:44] LABS: ALK PHOS 53 U/L (45-117)
[2022-07-11] MEDS ORDERED: DEXTROSE 50%-WATER - 25 GM/50 ML VIAL IVPUSH ONE (12:44)
[2022-07-11] MEDS ORDERED: DEXTROSE 50%-WATER 25 GM/50 ML DISP.SYRIN ONE (12:49)
[2022-07-11] MEDS ORDERED: SODIUM CHLORIDE 1,000 ML IV STA (14:28)
[2022-07-11] MEDS ORDERED: ROSUVASTATIN CA 20 MG TABLET ONE (21:50)
[2022-07-11] MEDS ORDERED: levETIRAcetam 500 MG TABLET (FP) PO ONE (21:50)
[2022-07-11] MEDS: levETIRAcetam 500 MG TABLET (FP) PO SCH (21:52)
[2022-07-11] MEDS ORDERED: ROSUVASTATIN CA 20 MG TABLET PO SCH (22:00)
[2022-07-12 02:45] VITALS: RESP 18; BMI 31.6
[2022-07-12] MEDS ORDERED: TAMSULOSIN HCL 0.4 MG CAP PO SCH (08:30)
[2022-07-12] MEDS ORDERED: ASPIRIN COATED 81 MG TABLET.EC PO SCH (10:00)
[2022-07-12] MEDS: levETIRAcetam 500 MG TABLET (FP) PO SCH (10:15)
[2022-07-12 10:29] LABS: EPI CELLS 2 /uL (0-25.1); HYALINE CASTS 1 /uL (0-3.1); PH,URINE 6.5 (5.0-8.0); URINE APPEARANCE CLOUDY; URINE BACTERIA 472 /uL (0-1359); URINE BILIRUBIN NEGATIVE (NEGATIVE); URINE COLOR YELLOW; URINE GLUCOSE (UA) NEGATIVE (NEGATIVE); URINE KETONE NEGATIVE (NEGATIVE); URINE LEUK ESTERASE 3+ (NEGATIVE); URINE NITRITE NEGATIVE (NEGATIVE); URINE PROTEIN 2+ (NEGATIVE); URINE RBC 164 /uL (0-23.9); URINE WBC 2497 /uL (0-25.8)
[2022-07-12 14:32] LABS: BASO % 0.5 % (0-2.0); EOS % 1.4 % (0-4.5); HEMATOCRIT 38.1 % (35.4-49); HEMOGLOBIN 13.5 GM/dL (11.7-16.9); LYMPH % 20.2 % (8-40); MCH 34.1 pg (25.7-33.7); MCHC 35.3 g/dl (32.0-35.9); MEAN CELL VOLUME 96.6 fl (80-96); MEAN PLT VOLUME 10.8 fl (7.5-11.1); NEUT % 64.9 % (42.8-82.8); PLATELET COUNT 90 10^3/uL (134-434); RBC 3.95 M/mm3 (4.00-5.60); RDW 11.7 % (11.9-15.9); WHITE BLOOD COUNT 6.4 K/mm3 (4.0-10.0)
[2022-07-12 14:33] VITALS: BP 107/67; PULSE 59; TEMP 98.2
[2022-07-12] MEDS ORDERED: CEFTRIAXONE 1 GM in DEXTROSE 5%-WATER - 50 ML IVPB ONE (15:00)
[2022-07-12 15:02] LABS: CREATININE 1.1 mg/dL (0.55-1.3)
[2022-07-12] MEDS ORDERED: CEFUROXIME AXETIL 500 MG TABLET PO SCH (22:00)
== END 2022-07-12 17:36 | disposition home health service (06) ==
LOC: JER 09:20 → JERBED 13:57 → J6S 07-12 01:57
PROVIDERS: ADMIT Internal Medicine; ATTEND Internal Medicine
PROC: 3E03329 Introduction of Other Anti-infective into Peripheral Vein, Percutaneous Approach (ICD-10-PCS; principal; 2022-07-11)
PROC: 3E0337Z Introduction of Electrolytic and Water Balance Substance into Peripheral Vein, Percutaneous Approach (ICD-10-PCS; 2022-07-11)
PROC: 3E0337Z Introduction of Electrolytic and Water Balance Substance into Peripheral Vein, Percutaneous Approach (ICD-10-PCS; 2022-07-11)
DX: N17.9 Acute kidney failure, unspecified (principal); E86.0 Dehydration; E16.2 Hypoglycemia, unspecified; W18.39XA Other fall on same level, initial encounter; Y93.89 Activity, other specified; Y92.89 Other specified places as the place of occurrence of the external cause; Z88.0 Allergy status to penicillin; E66.8 Other obesity; Z68.31 Body mass index [BMI] 31.0-31.9, adult
CPT/HCPCS: 36415; 70450-TC; 71045-TC-FY; 72125-TC; 80048; 80053; 81003; 82570; 82962; 84484; 84540; 85025; 87086; 87186; 93005; 93010; 96361; 96365; 96375; 97116-GP; 97161-GP; 99285-25; C9803-CS; G0378; U0003; U0005

== ENCOUNTER 2022-12-29 12:09 | Inpatient (IN) | payer OTHER ==
[2022-12-29] MEDS ORDERED: SODIUM CHLORIDE 1,000 ML IV STA (13:04)
[2022-12-29 13:28] LABS: BASO % 0.7 % (0-2.0); EOS % 0.3 % (0-4.5); HEMOGLOBIN 11.9 GM/dL (11.7-16.9); LYMPH % 16.8 % (8-40); MCH 33.4 pg (25.7-33.7); MCHC 33.9 g/dl (32.0-35.9); MEAN CELL VOLUME 98.5 fl (80-96); MEAN PLT VOLUME 11.1 fl (7.5-11.1); MONO % 7.7 % (3.8-10.2); NEUT % 74.5 % (42.8-82.8); PLATELET COUNT 109 10^3/uL (134-434); RBC 3.56 M/mm3 (4.00-5.60); RDW 11.7 % (11.9-15.9); WHITE BLOOD COUNT 7.1 K/mm3 (4.0-10.0)
[2022-12-29 13:56] LABS: ALBUMIN 3.5 g/dl (3.4-5.0)
[2022-12-29 13:57] LABS: BLOOD UREA NITROGEN 40.9 mg/dL (7-18); MAGNESIUM 2.4 mg/dL (1.8-2.4)
[2022-12-29 13:59] LABS: PHOSPHOROUS 2.1 mg/dL (2.5-4.9)
[2022-12-29 14:01] LABS: BILIRUBIN,TOTAL 0.7 mg/dL (0.2-1); CREATININE 2.8 mg/dL (0.55-1.3); TOT PROT 7.1 g/dl (6.4-8.2)
[2022-12-29 14:04] LABS: INR 1.36 (0.83-1.09); PROTHROMBIN TIME (PATIENT) 15.7 SEC (9.7-13.0)
[2022-12-29 14:07] LABS: ACTIVATED PTT 28.9 SECONDS (25.2-36.5)
[2022-12-29 14:15] LABS: LACTIC ACID 2.7 mmol/L (0.4-2.0)
[2022-12-29] MEDS ORDERED: POTASSIUM CHLORIDE ORAL LIQUID 20 MEQ/15 ML PO ONE (14:18)
[2022-12-29] MEDS ORDERED: SODIUM CHLORIDE 0.9% 500 ML INFUS.BAG IV ONE (14:21)
[2022-12-29 14:32] LABS: N-TERMINAL BNP 80.7 pg/ml (5-450)
[2022-12-29] MEDS ORDERED: POTASSIUM CHLORIDE ORAL LIQUID 20 MEQ/15 ML ONE ×2 (16:06→16:43)
[2022-12-29] MEDS: SODIUM CHLORIDE 1,000 ML IV SCH (16:15)
[2022-12-29] MEDS: INSULIN SLIDING SCALE (NOVOLOG) 1 VIAL SQ SCH (16:48)
[2022-12-29 19:53] LABS: EPI CELLS 9 /uL (0-25.1); HYALINE CASTS 0 /uL (0-3.1); PH,URINE 5.5 (5.0-8.0); URINE APPEARANCE CLOUDY; URINE BACTERIA >9,000 /uL (0-1359); URINE BILIRUBIN NEGATIVE (NEGATIVE); URINE COLOR YELLOW; URINE GLUCOSE (UA) NEGATIVE (NEGATIVE); URINE KETONE NEGATIVE (NEGATIVE); URINE LEUK ESTERASE 2+ (NEGATIVE); URINE NITRITE POSITIVE (NEGATIVE); URINE PROTEIN 2+ (NEGATIVE); URINE RBC 15 /uL (0-23.9); URINE WBC 1250 /uL (0-25.8)
[2022-12-29] MEDS ORDERED: ROSUVASTATIN CA 20 MG TABLET ONE (21:33)
[2022-12-29] MEDS ORDERED: levETIRAcetam 500 MG TABLET (FP) PO ONE (21:33)
[2022-12-29] MEDS ORDERED: HEPARIN NA (PORCINE) 5,000 UNITS/ML 1ML VIAL ONE (21:33)
[2022-12-29] MEDS: ROSUVASTATIN CA 20 MG TABLET PO SCH (21:51)
[2022-12-29] MEDS: levETIRAcetam 500 MG TABLET (FP) PO SCH (21:51)
[2022-12-29] MEDS: HEPARIN NA (PORCINE) 5,000 UNITS/ML 1ML VIAL SQ SCH (21:51)
[2022-12-30 07:16] LABS: BASO % 0.8 % (0-2.0); EOS % 0.7 % (0-4.5); HEMATOCRIT 30.9 % (35.4-49); HEMOGLOBIN 10.4 GM/dL (11.7-16.9); LYMPH % 25.2 % (8-40); MCH 33.5 pg (25.7-33.7); MCHC 33.7 g/dl (32.0-35.9); MEAN CELL VOLUME 99.3 fl (80-96); MEAN PLT VOLUME 11.3 fl (7.5-11.1); MONO % 11.4 % (3.8-10.2); NEUT % 61.9 % (42.8-82.8); PLATELET COUNT 90 10^3/uL (134-434); RBC 3.11 M/mm3 (4.00-5.60); RDW 11.5 % (11.9-15.9); WHITE BLOOD COUNT 6.7 K/mm3 (4.0-10.0)
[2022-12-30 07:55] LABS: ALBUMIN 3.3 g/dl (3.4-5.0); BLOOD UREA NITROGEN 39.5 mg/dL (7-18); CALCIUM 8.7 mg/dL (8.5-10.1)
[2022-12-30 07:58] LABS: CREATININE 2.1 mg/dL (0.55-1.3)
[2022-12-30 08:00] LABS: BILIRUBIN,TOTAL 0.6 mg/dL (0.2-1); TOT PROT 6.4 g/dl (6.4-8.2)
[2022-12-30] MEDS: INSULIN SLIDING SCALE (NOVOLOG) 1 VIAL SQ SCH ×3 (08:10→17:44)
[2022-12-30] MEDS ORDERED: TAMSULOSIN HCL 0.4 MG CAP ONE (08:51)
[2022-12-30] MEDS ORDERED: HEPARIN NA (PORCINE) 5,000 UNITS/ML 1ML VIAL ONE (08:51)
[2022-12-30] MEDS ORDERED: levETIRAcetam 500 MG TABLET (FP) PO ONE (08:51)
[2022-12-30] MEDS ORDERED: ASPIRIN COATED 81 MG TABLET.EC ONE (08:51)
[2022-12-30] MEDS: TAMSULOSIN HCL 0.4 MG CAP PO SCH (08:58)
[2022-12-30] MEDS: ASPIRIN COATED 81 MG TABLET.EC PO SCH (09:00)
[2022-12-30] MEDS: levETIRAcetam 500 MG TABLET (FP) PO SCH ×2 (09:00→22:04)
[2022-12-30] MEDS: HEPARIN NA (PORCINE) 5,000 UNITS/ML 1ML VIAL SQ SCH ×2 (09:00→22:04)
[2022-12-30] MEDS ORDERED: AZTREONAM 1 GM VIAL (RESTRICTED TO ID) ONE (09:02)
[2022-12-30] MEDS: SODIUM CHLORIDE 1,000 ML IV SCH ×2 (09:29→16:29)
[2022-12-30] MEDS ORDERED: AZTREONAM 1 GM in DEXTROSE 5%-WATER - 50 ML IVPB SCH (10:00)
[2022-12-30] MEDS: AZTREONAM 1 GM in DEXTROSE 5%-WATER - 50 ML IVPB SCH (17:44)
[2022-12-30 18:51] VITALS: BMI 30.9
[2022-12-30] MEDS: ROSUVASTATIN CA 20 MG TABLET PO SCH (22:04)
[2022-12-31] MEDS: AZTREONAM 1 GM in DEXTROSE 5%-WATER - 50 ML IVPB SCH ×3 (02:20→17:37)
[2022-12-31] MEDS: INSULIN SLIDING SCALE (NOVOLOG) 1 VIAL SQ SCH ×3 (06:17→16:31)
[2022-12-31] MEDS: TAMSULOSIN HCL 0.4 MG CAP PO SCH (08:07)
[2022-12-31] MEDS: ASPIRIN COATED 81 MG TABLET.EC PO SCH (09:34)
[2022-12-31] MEDS: HEPARIN NA (PORCINE) 5,000 UNITS/ML 1ML VIAL SQ SCH ×2 (09:34→22:18)
[2022-12-31] MEDS: levETIRAcetam 500 MG TABLET (FP) PO SCH ×2 (09:34→22:18)
[2022-12-31 12:34] LABS: BASO % 1.1 % (0-2.0); EOS % 1.5 % (0-4.5); HEMATOCRIT 31.7 % (35.4-49); HEMOGLOBIN 10.9 GM/dL (11.7-16.9); LYMPH % 28.4 % (8-40); MCH 33.6 pg (25.7-33.7); MCHC 34.6 g/dl (32.0-35.9); MEAN PLT VOLUME 11.5 fl (7.5-11.1); MONO % 13.5 % (3.8-10.2); NEUT % 55.5 % (42.8-82.8); PLATELET COUNT 94 10^3/uL (134-434); RBC 3.26 M/mm3 (4.00-5.60); RDW 11.5 % (11.9-15.9); WHITE BLOOD COUNT 4.7 K/mm3 (4.0-10.0)
[2022-12-31 13:15] LABS: CREATININE 1.6 mg/dL (0.55-1.3)
[2022-12-31] MEDS: SODIUM CHLORIDE 1,000 ML IV SCH (16:31)
[2022-12-31] MEDS: ROSUVASTATIN CA 20 MG TABLET PO SCH (22:18)
[2023-01-01] MEDS: AZTREONAM 1 GM in DEXTROSE 5%-WATER - 50 ML IVPB SCH ×3 (03:03→17:10)
[2023-01-01] MEDS: INSULIN SLIDING SCALE (NOVOLOG) 1 VIAL SQ SCH ×3 (06:37→16:16)
[2023-01-01 08:34] LABS: BASO % 0.7 % (0-2.0); EOS % 1.3 % (0-4.5); HEMATOCRIT 30.5 % (35.4-49); HEMOGLOBIN 10.5 GM/dL (11.7-16.9); LYMPH % 35.2 % (8-40); MCH 33.6 pg (25.7-33.7); MCHC 34.4 g/dl (32.0-35.9); MEAN CELL VOLUME 97.6 fl (80-96); MEAN PLT VOLUME 11.2 fl (7.5-11.1); MONO % 15.7 % (3.8-10.2); NEUT % 47.1 % (42.8-82.8); PLATELET COUNT 90 10^3/uL (134-434); RBC 3.13 M/mm3 (4.00-5.60); RDW 11.6 % (11.9-15.9)
[2023-01-01 09:02] LABS: CALCIUM 8.8 mg/dL (8.5-10.1)
[2023-01-01 09:03] LABS: ALBUMIN 3.2 g/dl (3.4-5.0); BLOOD UREA NITROGEN 25.2 mg/dL (7-18)
[2023-01-01 09:06] LABS: CREATININE 1.5 mg/dL (0.55-1.3)
[2023-01-01 09:07] LABS: BILIRUBIN,TOTAL 0.6 mg/dL (0.2-1); TOT PROT 6.5 g/dl (6.4-8.2)
[2023-01-01] MEDS: ASPIRIN COATED 81 MG TABLET.EC PO SCH (09:35)
[2023-01-01] MEDS: levETIRAcetam 500 MG TABLET (FP) PO SCH ×2 (09:35→22:09)
[2023-01-01] MEDS: TAMSULOSIN HCL 0.4 MG CAP PO SCH (09:36)
[2023-01-01] MEDS: HEPARIN NA (PORCINE) 5,000 UNITS/ML 1ML VIAL SQ SCH ×2 (09:36→22:09)
[2023-01-01] MEDS: DEXTROSE 5%-0.45% SALINE 1,000 ML IV SCH (11:53)
[2023-01-01] MEDS: ROSUVASTATIN CA 20 MG TABLET PO SCH (22:08)
[2023-01-02] MEDS: AZTREONAM 1 GM in DEXTROSE 5%-WATER - 50 ML IVPB SCH ×2 (02:20→09:48)
[2023-01-02] MEDS: INSULIN SLIDING SCALE (NOVOLOG) 1 VIAL SQ SCH ×3 (06:38→16:23)
[2023-01-02] MEDS: TAMSULOSIN HCL 0.4 MG CAP PO SCH (09:48)
[2023-01-02] MEDS: ASPIRIN COATED 81 MG TABLET.EC PO SCH (09:48)
[2023-01-02] MEDS: levETIRAcetam 500 MG TABLET (FP) PO SCH ×2 (09:48→21:59)
[2023-01-02] MEDS: HEPARIN NA (PORCINE) 5,000 UNITS/ML 1ML VIAL SQ SCH ×2 (09:49→21:59)
[2023-01-02 09:59] LABS: CALCIUM 8.6 mg/dL (8.5-10.1)
[2023-01-02 10:00] LABS: ALBUMIN 3.1 g/dl (3.4-5.0); BLOOD UREA NITROGEN 25.1 mg/dL (7-18)
[2023-01-02 10:03] LABS: BILIRUBIN,TOTAL 0.4 mg/dL (0.2-1); CREATININE 1.4 mg/dL (0.55-1.3); TOT PROT 6.4 g/dl (6.4-8.2)
[2023-01-02] MEDS: DEXTROSE 5%-0.45% SALINE 1,000 ML IV SCH ×2 (13:23→22:04)
[2023-01-03] MEDS: INSULIN SLIDING SCALE (NOVOLOG) 1 VIAL SQ SCH ×3 (06:51→16:33)
[2023-01-03] MEDS: TAMSULOSIN HCL 0.4 MG CAP PO SCH (08:39)
[2023-01-03] MEDS: HEPARIN NA (PORCINE) 5,000 UNITS/ML 1ML VIAL SQ SCH ×2 (09:57→21:26)
[2023-01-03] MEDS: levETIRAcetam 500 MG TABLET (FP) PO SCH ×2 (09:58→21:23)
[2023-01-03] MEDS: ASPIRIN COATED 81 MG TABLET.EC PO SCH (09:58)
[2023-01-03 13:36] LABS: BASO % 0.8 % (0-2.0); EOS % 1.3 % (0-4.5); HEMATOCRIT 28.4 % (35.4-49); HEMOGLOBIN 9.7 GM/dL (11.7-16.9); MCH 33.6 pg (25.7-33.7); MCHC 34.3 g/dl (32.0-35.9); MEAN PLT VOLUME 11.2 fl (7.5-11.1); MONO % 15.1 % (3.8-10.2); NEUT % 47.8 % (42.8-82.8); PLATELET COUNT 86 10^3/uL (134-434); WHITE BLOOD COUNT 4.2 K/mm3 (4.0-10.0)
[2023-01-03 14:00] LABS: CALCIUM 8.6 mg/dL (8.5-10.1)
[2023-01-03 14:04] LABS: BLOOD UREA NITROGEN 22.1 mg/dL (7-18); CREATININE 1.3 mg/dL (0.55-1.3)
[2023-01-03 14:05] LABS: BILIRUBIN,TOTAL 0.4 mg/dL (0.2-1); TOT PROT 6.2 g/dl (6.4-8.2)
[2023-01-03] MEDS: DEXTROSE 5%-0.45% SALINE 1,000 ML IV SCH (21:20)
[2023-01-04] MEDS ORDERED: INSULIN (NOVOLOG) ASPART 100 UNITS/ML 10ML VIAL ONE (06:18)
[2023-01-04] MEDS: INSULIN SLIDING SCALE (NOVOLOG) 1 VIAL SQ SCH ×3 (06:22→16:31)
[2023-01-04] MEDS: TAMSULOSIN HCL 0.4 MG CAP PO SCH (08:49)
[2023-01-04] MEDS: HEPARIN NA (PORCINE) 5,000 UNITS/ML 1ML VIAL SQ SCH ×2 (09:39→21:54)
[2023-01-04] MEDS: ASPIRIN COATED 81 MG TABLET.EC PO SCH (09:39)
[2023-01-04] MEDS: levETIRAcetam 500 MG TABLET (FP) PO SCH ×2 (09:39→21:54)
[2023-01-04] MEDS: DEXTROSE 5%-0.45% SALINE 1,000 ML IV SCH (11:51)
[2023-01-04 13:17] LABS: BASO % 1.2 % (0-2.0); EOS % 1.6 % (0-4.5); HEMATOCRIT 31.9 % (35.4-49); LYMPH % 30.7 % (8-40); MCHC 34.6 g/dl (32.0-35.9); MEAN CELL VOLUME 98.3 fl (80-96); MEAN PLT VOLUME 11.2 fl (7.5-11.1); MONO % 13.6 % (3.8-10.2); NEUT % 52.9 % (42.8-82.8); PLATELET COUNT 91 10^3/uL (134-434); RBC 3.24 M/mm3 (4.00-5.60); RDW 11.9 % (11.9-15.9); WHITE BLOOD COUNT 4.7 K/mm3 (4.0-10.0)
[2023-01-04 13:56] LABS: ALBUMIN 3.4 g/dl (3.4-5.0); CALCIUM 8.8 mg/dL (8.5-10.1)
[2023-01-04 13:57] LABS: BLOOD UREA NITROGEN 19.9 mg/dL (7-18)
[2023-01-04 13:59] LABS: CREATININE 1.3 mg/dL (0.55-1.3)
[2023-01-04 14:01] LABS: BILIRUBIN,TOTAL 0.5 mg/dL (0.2-1); TOT PROT 6.9 g/dl (6.4-8.2)
[2023-01-05] MEDS: DEXTROSE 5%-0.45% SALINE 1,000 ML IV SCH (05:27)
[2023-01-05] MEDS: INSULIN SLIDING SCALE (NOVOLOG) 1 VIAL SQ SCH ×3 (06:03→16:43)
[2023-01-05] MEDS: HEPARIN NA (PORCINE) 5,000 UNITS/ML 1ML VIAL SQ SCH ×2 (09:23→21:34)
[2023-01-05] MEDS: ASPIRIN COATED 81 MG TABLET.EC PO SCH (09:23)
[2023-01-05] MEDS: levETIRAcetam 500 MG TABLET (FP) PO SCH ×2 (09:23→21:34)
[2023-01-05] MEDS: TAMSULOSIN HCL 0.4 MG CAP PO SCH (09:24)
[2023-01-05 10:34] LABS: BASO % 0.7 % (0-2.0); EOS % 1.1 % (0-4.5); HEMATOCRIT 30.1 % (35.4-49); HEMOGLOBIN 10.3 GM/dL (11.7-16.9); LYMPH % 35.5 % (8-40); MCH 33.8 pg (25.7-33.7); MCHC 34.2 g/dl (32.0-35.9); MEAN CELL VOLUME 98.9 fl (80-96); MEAN PLT VOLUME 11.3 fl (7.5-11.1); MONO % 12.5 % (3.8-10.2); NEUT % 50.2 % (42.8-82.8); PLATELET COUNT 88 10^3/uL (134-434); RBC 3.05 M/mm3 (4.00-5.60); RDW 11.8 % (11.9-15.9); WHITE BLOOD COUNT 3.8 K/mm3 (4.0-10.0)
[2023-01-05 10:51] LABS: CHLORIDE 105 mmol/L (98-107); SODIUM 136 mmol/L (136-145)
[2023-01-05 10:54] LABS: ANION GAP 7 MMOL/L (8-16); BLOOD UREA NITROGEN 16.5 mg/dL (7-18); CO2 25 mmol/L (21-32)
[2023-01-05 10:57] LABS: CREATININE 1.3 mg/dL (0.55-1.3); SGOT/AST 100 U/L (15-37); SGPT/ALT 188 U/L (13-61)
[2023-01-05 10:58] LABS: BILIRUBIN,TOTAL 0.4 mg/dL (0.2-1); TOT PROT 5.6 g/dl (6.4-8.2)
[2023-01-05 11:00] LABS: ALK PHOS 54 U/L (45-117)
[2023-01-05 11:13] LABS: ALBUMIN 2.7 g/dl (3.4-5.0); CALCIUM 7.3 mg/dL (8.5-10.1)
[2023-01-05] MEDS ORDERED: DEXTROSE 5%-0.45% SALINE 1,000 ML IV SCH (13:01)
[2023-01-05 15:00] VITALS: RESP 20
[2023-01-05] MEDS ORDERED: SODIUM CHLORIDE 500 ML IV STA (20:44)
[2023-01-06 04:54] VITALS: BP 110/57; PULSE 61; TEMP 98.3
[2023-01-06] MEDS: INSULIN SLIDING SCALE (NOVOLOG) 1 VIAL SQ SCH ×2 (06:08→11:51)
[2023-01-06] MEDS: HEPARIN NA (PORCINE) 5,000 UNITS/ML 1ML VIAL SQ SCH (09:58)
[2023-01-06] MEDS: ASPIRIN COATED 81 MG TABLET.EC PO SCH (09:58)
[2023-01-06] MEDS: levETIRAcetam 500 MG TABLET (FP) PO SCH (09:58)
[2023-01-06] MEDS: TAMSULOSIN HCL 0.4 MG CAP PO SCH (09:58)
[2023-01-06 10:14] LABS: BASO % 0.9 % (0-2.0); EOS % 1.1 % (0-4.5); HEMOGLOBIN 10.3 GM/dL (11.7-16.9); LYMPH % 37.6 % (8-40); MCH 34.1 pg (25.7-33.7); MCHC 34.3 g/dl (32.0-35.9); MEAN CELL VOLUME 99.3 fl (80-96); MEAN PLT VOLUME 11.6 fl (7.5-11.1); NEUT % 49.4 % (42.8-82.8); PLATELET COUNT 89 10^3/uL (134-434); RBC 3.02 M/mm3 (4.00-5.60); WHITE BLOOD COUNT 4.3 K/mm3 (4.0-10.0)
[2023-01-06 10:30] LABS: BLOOD UREA NITROGEN 20.6 mg/dL (7-18)
[2023-01-06 10:31] LABS: ALBUMIN 3.1 g/dl (3.4-5.0)
[2023-01-06 10:34] LABS: CREATININE 1.1 mg/dL (0.55-1.3)
[2023-01-06 10:35] LABS: BILIRUBIN,TOTAL 0.4 mg/dL (0.2-1); TOT PROT 6.5 g/dl (6.4-8.2)
[2023-01-06 10:44] LABS: CALCIUM 8.7 mg/dL (8.5-10.1)
[2023-01-07 23:07] LABS: FIBROSIS SCORE. 0.46 (0.00-0.21); HCV ALPHA 2 MACRO CHART 200 mg/dL (110-276); NECRO.INFLAM ACT.SCORE 0.85 (0.00-0.17); NECROINFLAM. ACTIVITY GRADE A3-Severe activity (.)
== END 2023-01-06 14:48 | disposition home health service (06) | DRG 690 ==
LOC: JER 12:09 → JERBED 13:34 → J4W 12-30 18:26 → J7W 01-01 18:03
PROVIDERS: ADMIT Internal Medicine; ATTEND Internal Medicine
DX: N39.0 Urinary tract infection, site not specified (principal); N17.9 Acute kidney failure, unspecified; E87.20 Acidosis, unspecified; I31.39 Other pericardial effusion (noninflammatory); I10 Essential (primary) hypertension; E78.5 Hyperlipidemia, unspecified; B96.20 Unspecified Escherichia coli [E. coli] as the cause of diseases classified elsewhere; E11.649 Type 2 diabetes mellitus with hypoglycemia without coma; E86.0 Dehydration; N28.1 Cyst of kidney, acquired; D64.9 Anemia, unspecified; E11.51 Type 2 diabetes mellitus with diabetic peripheral angiopathy without gangrene; D69.6 Thrombocytopenia, unspecified; E66.9 Obesity, unspecified; Z68.30 Body mass index [BMI] 30.0-30.9, adult; Z86.73 Personal history of transient ischemic attack (TIA), and cerebral infarction without residual deficits; Z85.46 Personal history of malignant neoplasm of prostate; Z85.828 Personal history of other malignant neoplasm of skin
CPT/HCPCS: 0241U-QW; 36415; 70450-TC; 71045-TC-FY; 76705-TC; 76775-TC; 76856-TC; 80048; 80053; 80061; 81003; 82103; 82172; 82550; 82570; 82728; 82962; 82977; 83010; 83036; 83516; 83540; 83605; 83735; 83880; 83883; 84100; 84300; 84443; 84460; 84484; 85025; 85610; 85730; 86038; 86705; 86707; 86708; 87086; 87186; 87340; 87350; 87517; 87522; 93005; 93010; 93306-TC; 93880-TC; 97116-GP; 97162-GP; 99285-25; J1644

== ENCOUNTER 2023-03-06 06:03 | Observation (INO) | payer OTHER ==
[2023-03-06 09:03] LABS: INR 1.32 (0.83-1.09); PROTHROMBIN TIME (PATIENT) 15.3 SEC (9.7-13.0)
[2023-03-06 09:06] LABS: ACTIVATED PTT 33.1 SECONDS (25.2-36.5); BASO % 0.6 % (0-2.0); EOS % 2.4 % (0-4.5); HEMATOCRIT 40.2 % (35.4-49); HEMOGLOBIN 14.1 GM/dL (11.7-16.9); LYMPH % 40.2 % (8-40); MCH 34.9 pg (25.7-33.7); MCHC 35.1 g/dl (32.0-35.9); MEAN CELL VOLUME 99.3 fl (80-96); MEAN PLT VOLUME 12.3 fl (7.5-11.1); MONO % 10.4 % (3.8-10.2); NEUT % 46.4 % (42.8-82.8); PLATELET COUNT 74 10^3/uL (134-434); RBC 4.04 M/mm3 (4.00-5.60); WHITE BLOOD COUNT 4.1 K/mm3 (4.0-10.0)
[2023-03-06 09:19] LABS: CHLORIDE 106 mmol/L (98-107); SODIUM 136 mmol/L (136-145)
[2023-03-06 09:21] LABS: BLOOD UREA NITROGEN 19.4 mg/dL (7-18); CALCIUM 9.6 mg/dL (8.5-10.1); CO2 30 mmol/L (21-32); GLUCOSE,RANDOM 96 mg/dL (74-106)
[2023-03-06 09:24] LABS: CREATININE 1.2 mg/dL (0.55-1.3); SGOT/AST 86 U/L (15-37)
[2023-03-06 09:26] LABS: BILIRUBIN,TOTAL 0.6 mg/dL (0.2-1); TOT PROT 8.3 g/dl (6.4-8.2)
[2023-03-06 09:27] LABS: ALK PHOS 49 U/L (45-117)
[2023-03-06 09:28] LABS: ANION GAP 0 MMOL/L (8-16); SGPT/ALT 40 U/L (13-61)
[2023-03-06] MEDS ORDERED: SODIUM CHLORIDE 500 ML IV STA (13:58)
[2023-03-06] MEDS ORDERED: LOSARTAN POTASSIUM 25 MG TABLET ONE (15:02)
[2023-03-06] MEDS ORDERED: levETIRAcetam 500 MG TABLET (FP) PO ONE (15:03)
[2023-03-06] MEDS: levETIRAcetam 500 MG TABLET (FP) PO SCH ×2 (15:05→21:52)
[2023-03-06] MEDS: LOSARTAN POTASSIUM 25 MG TABLET PO SCH (15:05)
[2023-03-06] MEDS: INSULIN SLIDING SCALE (NOVOLOG) 1 VIAL SQ SCH ×2 (17:48→21:53)
[2023-03-06 21:48] VITALS: BMI 32.8
[2023-03-07] MEDS: INSULIN SLIDING SCALE (NOVOLOG) 1 VIAL SQ SCH ×3 (06:08→16:47)
[2023-03-07] MEDS: ASPIRIN COATED 81 MG TABLET.EC PO SCH (09:17)
[2023-03-07] MEDS: LOSARTAN POTASSIUM 25 MG TABLET PO SCH (09:17)
[2023-03-07] MEDS: TAMSULOSIN HCL 0.4 MG CAP PO SCH (09:17)
[2023-03-07] MEDS: levETIRAcetam 500 MG TABLET (FP) PO SCH (09:17)
[2023-03-07 10:23] LABS: URINE APPEARANCE CLEAR; URINE BILIRUBIN NEGATIVE (NEGATIVE); URINE COLOR YELLOW; URINE GLUCOSE (UA) NEGATIVE (NEGATIVE); URINE KETONE NEGATIVE (NEGATIVE); URINE LEUK ESTERASE NEGATIVE (NEGATIVE); URINE NITRITE NEGATIVE (NEGATIVE); URINE PROTEIN NEGATIVE (NEGATIVE); URINE UROBILINOGEN 0.2 mg/dL (0.2-1.0)
[2023-03-07 12:04] LABS: HEMATOCRIT 37.1 % (35.4-49); HEMOGLOBIN 12.7 GM/dL (11.7-16.9); MCHC 34.1 g/dl (32.0-35.9); MEAN CELL VOLUME 99.6 fl (80-96); MEAN PLT VOLUME 11.6 fl (7.5-11.1); PLATELET COUNT 77 10^3/uL (134-434); RBC 3.73 M/mm3 (4.00-5.60); RDW 11.7 % (11.9-15.9); WHITE BLOOD COUNT 3.7 K/mm3 (4.0-10.0)
[2023-03-07 12:28] LABS: ALBUMIN 3.7 g/dl (3.4-5.0); CALCIUM 9.5 mg/dL (8.5-10.1)
[2023-03-07 12:29] LABS: BLOOD UREA NITROGEN 14.5 mg/dL (7-18)
[2023-03-07 12:33] LABS: BILIRUBIN,TOTAL 0.8 mg/dL (0.2-1); TOT PROT 6.8 g/dl (6.4-8.2)
[2023-03-07] MEDS ORDERED: ROSUVASTATIN CA 20 MG TABLET PO SCH (22:00)
[2023-03-08] MEDS: levETIRAcetam 500 MG TABLET (FP) PO SCH ×2 (00:16→10:41)
[2023-03-08] MEDS: INSULIN SLIDING SCALE (NOVOLOG) 1 VIAL SQ SCH ×3 (02:00→12:53)
[2023-03-08] MEDS ORDERED: SENNOSIDES 8.6MG TABLET (FP) PO PRN (08:00)
[2023-03-08 10:22] LABS: BASO % 0.5 % (0-2.0); EOS % 2.2 % (0-4.5); HEMATOCRIT 39.1 % (35.4-49); HEMOGLOBIN 13.4 GM/dL (11.7-16.9); MCH 34.2 pg (25.7-33.7); MCHC 34.4 g/dl (32.0-35.9); MEAN CELL VOLUME 99.5 fl (80-96); MEAN PLT VOLUME 11.7 fl (7.5-11.1); MONO % 14.1 % (3.8-10.2); NEUT % 53.2 % (42.8-82.8); PLATELET COUNT 78 10^3/uL (134-434); RBC 3.93 M/mm3 (4.00-5.60); RDW 11.9 % (11.9-15.9)
[2023-03-08] MEDS: TAMSULOSIN HCL 0.4 MG CAP PO SCH (10:40)
[2023-03-08] MEDS: POLYETHYLENE GLYCOL (HEALTHYLAX) 3350 17 GM PACKET PO SCH ×2 (10:40→13:51)
[2023-03-08] MEDS: LOSARTAN POTASSIUM 25 MG TABLET PO SCH (10:41)
[2023-03-08] MEDS: ASPIRIN COATED 81 MG TABLET.EC PO SCH (10:41)
[2023-03-08 12:10] LABS: BLOOD UREA NITROGEN 16.3 mg/dL (7-18); CALCIUM 9.6 mg/dL (8.5-10.1)
[2023-03-08 12:11] LABS: ALBUMIN 3.7 g/dl (3.4-5.0); MAGNESIUM 2.2 mg/dL (1.8-2.4)
[2023-03-08 12:14] LABS: CREATININE 1.1 mg/dL (0.55-1.3); PHOSPHOROUS 3.2 mg/dL (2.5-4.9)
[2023-03-08 12:15] LABS: BILIRUBIN,TOTAL 0.6 mg/dL (0.2-1); TOT PROT 6.8 g/dl (6.4-8.2)
[2023-03-08 13:00] VITALS: BP 149/59; PULSE 64; RESP 16; TEMP 98.3
== END 2023-03-08 14:01 | disposition home or self-care (01) ==
LOC: JER 06:03 → JERBED 09:49 → J7W 21:05
PROVIDERS: ADMIT Internal Medicine; ATTEND Internal Medicine
PROC: 3E0337Z Introduction of Electrolytic and Water Balance Substance into Peripheral Vein, Percutaneous Approach (ICD-10-PCS; principal; 2023-03-06)
PROC: 3E0337Z Introduction of Electrolytic and Water Balance Substance into Peripheral Vein, Percutaneous Approach (ICD-10-PCS; 2023-03-06)
DX: G91.1 Obstructive hydrocephalus (principal); E66.8 Other obesity; Z68.32 Body mass index [BMI] 32.0-32.9, adult; Z98.2 Presence of cerebrospinal fluid drainage device; Z88.0 Allergy status to penicillin; Z86.73 Personal history of transient ischemic attack (TIA), and cerebral infarction without residual deficits
CPT/HCPCS: 0241U-QW; 36415; 70450-TC; 71045-TC-FY; 80053; 81003; 82962; 83735; 84100; 84132; 84484; 85025; 85027; 85610; 85730; 87086; 87186; 96360; 97116-GP; 97162-GP; 99285-25; G0378

== ENCOUNTER 2023-04-03 19:57 | Emergency (ER) | payer OTHER ==
[2023-04-03 20:19] VITALS: TEMP 97.8; BMI 31.3
[2023-04-03] MEDS ORDERED: DEXTROSE 50%-WATER - 25 GM/50 ML VIAL IVPUSH ONE (20:57)
[2023-04-03] MEDS ORDERED: DEXTROSE 50%-WATER 25 GM/50 ML DISP.SYRIN ONE (20:58)
[2023-04-03] MEDS ORDERED: SODIUM CHLORIDE 1,000 ML IV SCH (21:00)
[2023-04-03 21:16] LABS: BASO % 0.9 % (0-2.0); EOS % 3.2 % (0-4.5); HEMATOCRIT 39.6 % (35.4-49); HEMOGLOBIN 13.4 GM/dL (11.7-16.9); LYMPH % 31.7 % (8-40); MCH 33.3 pg (25.7-33.7); MCHC 33.8 g/dl (32.0-35.9); MEAN CELL VOLUME 98.5 fl (80-96); MEAN PLT VOLUME 11.4 fl (7.5-11.1); MONO % 13.5 % (3.8-10.2); NEUT % 50.7 % (42.8-82.8); PLATELET COUNT 84 10^3/uL (134-434); RBC 4.02 M/mm3 (4.00-5.60); RDW 11.5 % (11.9-15.9); WHITE BLOOD COUNT 4.7 K/mm3 (4.0-10.0)
[2023-04-03 21:27] LABS: INR 1.31 (0.83-1.09); PROTHROMBIN TIME (PATIENT) 15.1 SEC (9.7-13.0)
[2023-04-03 21:30] LABS: ACTIVATED PTT 31.7 SECONDS (25.2-36.5)
[2023-04-03 21:37] LABS: POTASSIUM 3.8 mmol/L (3.5-5.1)
[2023-04-03 21:38] LABS: CALCIUM 9.3 mg/dL (8.5-10.1)
[2023-04-03 21:39] LABS: ALBUMIN 4.2 g/dl (3.4-5.0)
[2023-04-03 21:40] LABS: BLOOD UREA NITROGEN 19.4 mg/dL (7-18)
[2023-04-03 21:44] LABS: TOT PROT 7.4 g/dl (6.4-8.2)
[2023-04-03 21:46] LABS: BILIRUBIN,TOTAL 0.9 mg/dL (0.2-1)
[2023-04-03 22:53] VITALS: BP 142/72; PULSE 65; RESP 16
== END 2023-04-04 00:21 | disposition home or self-care (01) ==
LOC: JER 19:57
PROC: 3E033GC Introduction of Other Therapeutic Substance into Peripheral Vein, Percutaneous Approach (ICD-10-PCS; principal; 2023-04-03)
DX: E16.2 Hypoglycemia, unspecified (principal)
CPT/HCPCS: 36415; 70450-TC; 80053; 80061; 82550; 82962; 83036; 84484; 85025; 85610; 85730; 86850; 86900; 86901; 93005; 93010; 99285-25

== ENCOUNTER 2025-01-31 22:08 | Observation (INO) | payer OTHER ==
[2025-01-31 23:06] LABS: BASO % 0.2 % (0-2.0); HEMATOCRIT 38.5 % (35.4-49); HEMOGLOBIN 12.8 GM/dL (11.7-16.9); LYMPH % 5.6 % (8-40); MCH 33.4 pg (25.7-33.7); MCHC 33.2 g/dl (32.0-35.9); MEAN CELL VOLUME 100.5 fl (80-96); MEAN PLT VOLUME 10.7 fl (7.5-11.1); MONO % 11.1 % (3.8-10.2); NEUT % 83.1 % (42.8-82.8); PLATELET COUNT 69 10^3/uL (134-434); RBC 3.83 M/mm3 (4.00-5.60); RDW 11.8 % (11.9-15.9); WHITE BLOOD COUNT 11.8 K/mm3 (4.0-10.0)
[2025-01-31 23:20] LABS: INR 1.56 (0.83-1.09)
[2025-01-31 23:23] LABS: ACTIVATED PTT 28.1 SECONDS (25.2-36.5)
[2025-01-31 23:35] LABS: CALCIUM 8.5 mg/dL (8.5-10.1)
[2025-01-31 23:36] LABS: ALBUMIN 3.4 g/dl (3.4-5.0)
[2025-01-31 23:38] LABS: BLOOD UREA NITROGEN 20.3 mg/dL (7-18)
[2025-01-31 23:39] LABS: CREATININE 1.1 mg/dL (0.55-1.3)
[2025-01-31 23:41] LABS: TOT PROT 6.4 g/dl (6.4-8.2)
[2025-01-31 23:43] LABS: BILIRUBIN,TOTAL 0.9 mg/dL (0.2-1)
[2025-02-01] MEDS ORDERED: ASPIRIN 81 MG CHEWABLE TABLETS ONE (01:07)
[2025-02-01] MEDS: ASPIRIN 81 MG CHEWABLE TABLETS PO ONE (01:11)
[2025-02-01 04:24] LABS: URINE APPEARANCE CLEAR; URINE COLOR YELLOW
[2025-02-01 04:25] LABS: URINE BILIRUBIN NEGATIVE (NEGATIVE); URINE GLUCOSE (UA) NEGATIVE (NEGATIVE); URINE KETONE TRACE (NEGATIVE); URINE NITRITE NEGATIVE (NEGATIVE); URINE PROTEIN 30 (NEGATIVE)
[2025-02-01 04:26] LABS: EPI CELLS 14.2 /uL (0-25.1); HYALINE CASTS 5.83 /uL (0-3.1); URINE BACTERIA 11.3 /uL (0-1359); URINE LEUK ESTERASE NEGATIVE (NEGATIVE); URINE RBC 16.8 /uL (0-23.9); URINE WBC 15.1 /uL (0-25.8)
[2025-02-01 06:24] LABS: BASO % 0.3 % (0-2.0); EOS % 0.1 % (0-4.5); HEMATOCRIT 41.9 % (35.4-49); HEMOGLOBIN 14.2 GM/dL (11.7-16.9); MCHC 33.8 g/dl (32.0-35.9); MEAN CELL VOLUME 100.6 fl (80-96); MEAN PLT VOLUME 11.5 fl (7.5-11.1); MONO % 12.6 % (3.8-10.2); PLATELET COUNT 66 10^3/uL (134-434); RBC 4.17 M/mm3 (4.00-5.60); RDW 12.1 % (11.9-15.9); WHITE BLOOD COUNT 13.1 K/mm3 (4.0-10.0)
[2025-02-01 06:42] LABS: POTASSIUM 3.9 mmol/L (3.5-5.1)
[2025-02-01 06:46] LABS: BLOOD UREA NITROGEN 19.7 mg/dL (7-18); CALCIUM 8.9 mg/dL (8.5-10.1)
[2025-02-01 06:47] LABS: ALBUMIN 3.5 g/dl (3.4-5.0); MAGNESIUM 2.1 mg/dL (1.8-2.4)
[2025-02-01 06:50] LABS: PHOSPHOROUS 3.2 mg/dL (2.5-4.9)
[2025-02-01 06:51] LABS: BILIRUBIN,TOTAL 1.1 mg/dL (0.2-1); TOT PROT 7.1 g/dl (6.4-8.2)
[2025-02-01] MEDS ORDERED: TAMSULOSIN HCL 0.4 MG CAP PO SCH ×2 (08:30)
[2025-02-01] MEDS ORDERED: levETIRAcetam 500 MG TABLET (FP) PO ONE (09:05)
[2025-02-01] MEDS ORDERED: MULTIVITAMINS (DAILY MVI) TABLET (FP) ONE (09:05)
[2025-02-01] MEDS ORDERED: ASPIRIN COATED 81 MG TABLET.EC ONE (09:05)
[2025-02-01] MEDS: ASPIRIN COATED 81 MG TABLET.EC PO SCH (09:11)
[2025-02-01] MEDS: levETIRAcetam 500 MG TABLET (FP) PO SCH (09:11)
[2025-02-01] MEDS: MULTIVITAMINS (DAILY MVI) TABLET (FP) PO SCH (09:11)
[2025-02-01 18:16] VITALS: BMI 28.8
[2025-02-01] MEDS: INSULIN ASPART SLIDING SCALE (NOVOLOG) 1 VIAL SQ SCH ×2 (18:19→18:22)
[2025-02-01] MEDS: TAMSULOSIN HCL 0.4 MG CAP PO SCH (21:31)
[2025-02-01] MEDS: ROSUVASTATIN CA 20 MG TABLET PO SCH (21:31)
[2025-02-02 06:50] LABS: HEMATOCRIT 39.2 % (35.4-49); HEMOGLOBIN 13.3 GM/dL (11.7-16.9); MCH 34.1 pg (25.7-33.7); MCHC 33.9 g/dl (32.0-35.9); MEAN CELL VOLUME 100.5 fl (80-96); MEAN PLT VOLUME 11.3 fl (7.5-11.1); PLATELET COUNT 66 10^3/uL (134-434); WHITE BLOOD COUNT 9.9 K/mm3 (4.0-10.0)
[2025-02-02 15:16] VITALS: BP 109/80; PULSE 64; RESP 18; TEMP 98.8
== END 2025-02-02 17:22 | disposition home or self-care (01) ==
LOC: JER 22:08 → JERBED 02-01 00:59 → J4W 02-01 16:53
PROVIDERS: ADMIT Internal Medicine; ATTEND Internal Medicine
DX: G45.9 Transient cerebral ischemic attack, unspecified (principal); I69.351 Hemiplegia and hemiparesis following cerebral infarction affecting right dominant side; Z98.2 Presence of cerebrospinal fluid drainage device; Z88.0 Allergy status to penicillin; Z87.891 Personal history of nicotine dependence; E11.9 Type 2 diabetes mellitus without complications; D69.6 Thrombocytopenia, unspecified
CPT/HCPCS: 36415; 70450-TC; 70496-TC; 70498-TC; 80053; 80061; 81003; 82550; 82553; 82962; 83036; 83735; 84100; 84484; 85025; 85027; 85610; 85730; 86850; 86900; 86901; 93005; 93010; 93306-TC; 97116-GP; 97162-GP; 99285-25; G0378